=== PATIENT | male | born 1970 | race Caucasian/White ===

== ENCOUNTER 2020-06-01 07:42 | Day surgery (SDC) | payer BC ==
[~2020-06-01 07:42] MED LIST: LACTATED RINGERS 1,000 ML IV SCH
[2020-06-01 08:13] VITALS: TEMP 97.1
[2020-06-01] MEDS ORDERED: PROPOFOL 10 MG/ML 20 ML VIAL IV ONE (08:52)
[2020-06-01] MEDS ORDERED: LIDOCAINE 1% INJ 10MG/ML (20 ML MDV) ONE (08:52)
--- NOTE | 2020-06-01 09:48 | P.PCN ---
Date of Procedure: 06/01/20 Description of Procedure: BRIEF HISTORY: Patient is a 49-year-old male presenting for outpatient colonoscopy for evaluation of rectal hemorrhage. Patient was seen in the clinic reporting 5-7 was bowel movements daily with urgency of bowel movements. He reported passing bright red blood and mucus. He reports sensation of incomplete evacuation. No family history of IBD or colon cancer. PROCEDURE PERFORMED: Colonoscopy with biopsy and tattoo. PREOPERATIVE DIAGNOSIS: Rectal hemorrhage. ESTIMATED BLOOD LOSS: Minimal. IV sedation per Anesthesia. PROCEDURE: After informed consent was obtained, the patient, was brought into the endoscopy unit. IV sedation was administered by Anesthesia under continuous monitoring. Digital rectal examination was normal. Initially the Olympus CF-190 flexible video colonoscope was then inserted in the rectum, gradually advanced into the cecum without any difficulty. Careful examination was performed as the scope was gradually being withdrawn. Ileocecal valve and the appendiceal orifice were visualized and appeared normal. The terminal ileum was intubated and appeared normal with biopsies taken. Prep was fair with a large amount of liquid stool with some solid components found throughout the colon. Incomplete visualization of the mucosa. Mucosa of the cecum, ascending colon, transverse colon, descending colon, and sigmoid colon appeared normal, however complete visualization of the mucosa prohibited by fair prep. In the rectum to masses were noted. The first rectal mass was located 20 cm from the anal verge in the proximal rectum, with multiple biopsies taken of a pedunculated 3.7 cm mass. 2 mL of ink were injected next to the mass to tattoo the area. The second rectal mass was located in the distal rectum proximally 10 cm from the anal verge and was flat and ulcerated with heaped up edges measuring approximately 4.5 cm in size the mass was biopsied and 2 mL of ink were injected next to the mass to tattoo the area. Retroflexion was performed in the rectum and no lesions were seen. The patient tolerated the procedure well. IMPRESSION: Large pedunculated rectal mass in the proximal rectum biopsied and tattooed. Large ulcerated distal rectal mass with heaped up edges biopsied and tattooed. Otherwise normal-appearing colon from rectum to cecum with biopsies of the terminal ileum and right colon. Fair prep. RECOMMENDATIONS: Findings of this examination were discussed with the patient and his . Okay to resume diet. Okay to resume medications. Await pathology from biopsies. An appointment in the GI clinic will be made for next week for the results of the biopsies, however extensive discussion with the patient and his at this time the suspicion is for malignancy. Further recommendations will be made based on the findings of the pathology, however patient will likely need referral for surgical intervention.
[2020-06-01 10:11] VITALS: BP 145/89; PULSE 63; RESP 16
== END 2020-06-01 10:52 | disposition home or self-care (01) ==
LOC: ORWHC2ENDO 07:42
PROVIDERS: ATTEND Internal Medicine
DX: C20 Malignant neoplasm of rectum (principal); K63.5 Polyp of colon; I10 Essential (primary) hypertension; Z79.899 Other long term (current) drug therapy
CPT/HCPCS: 88305; 45380; 45381; J2001; J2704

== ENCOUNTER → 2020-06-25 | Outpatient (CLI) | payer BC ==
[2020-06-25 07:07] LABS: African American GFR (CKD) >90 (>60 ml/min/1.73 sqM); Blood Urea Nitrogen 15 mg/dL (9-20); Non-African American GFR(CKD) >90 (>60 ml/min/1.73 sqM)
--- NOTE | 2020-06-28 23:01 | CT ---
EXAMINATION TYPE: CT ChestAbdPelvis w con DATE OF EXAM: 06/25/2020 COMPARISON: None HISTORY: Rectal cancer CT DLP: 1232.60 mGycm Automated exposure control for dose reduction was used. CONTRAST: CT scan of the chest, abdomen and pelvis is performed with Oral Contrast and with IV Contrast, patien t injected with 100 ml mL of Isovue 300. FINDINGS: LUNGS: The lungs are grossly clear. There is a 3 mm nodule of the left lower lobe at the major fissur e near the hilum (4:23, 8:78, 7:61). No pulmonary mass. There is subsegmental atelectasis of the left upper lobe at the lung base. There is no pleural effusion or pneumothorax seen. The tracheobronchia l tree is patent. CHEST SOFT TISSUES/MEDIASTINUM: No axillary, hilar, or mediastinal lymphadenopathy. No thoracic aorti c aneurysm. Cardiac size is normal. No pericardial effusion is seen. LIVER: There are numerous hepatic metastatic hypodense lesions, the largest in the left lobe measurin g up to 1.1 x 0.7 cm (3:57), and the largest in the right lobe in segment 8 with 2 adjacent confluent masses measuring up to 3.9 x 2.0 cm (3:58). BILIARY SYSTEM: No intrahepatic or extrahepatic biliary ductal dilatation. Likely gallbladder fundal adenomyomatosis. PANCREAS: Normal. SPLEEN: Normal. ADRENALS: Normal. KIDNEYS: There is minimal nonspecific perinephric stranding, left greater than right. Otherwise jony l kidneys bilaterally. BOWEL: There is masslike thickening of the mid and upper rectum with multiple adjacent mesorectal an d presacral nodules, spanning an area of approximately 4.2 cm craniocaudal (8:59). The midline presac ral area of nodularity measures 2.3 x 1.6 cm (3:110). The more inferior right posterolateral confluen t nodularity spans an area of approximately 2.9 x 1.4 cm (3:115). No evidence of bowel obstruction. T here is colonic diverticulosis without acute diverticulitis. There is a large amount of colonic fecal debris to the level of the descending colon. Normal appendix. Small bowel is unremarkable. PERITONEUM: No pneumoperitoneum. No free fluid. Perirectal nodularity in the region of the rectal ma ss as described above. Multiple vessels coursing along the peritoneum of the abdomen are not to be co nfused with peritoneal thickening. LYMPH NODES: 7 mm left mesorectal lymph node near the lower/mid rectum (3:124). Left internal iliac 12 x 18 mm lymph node (3:111). There are 2 retroperitoneal lymph nodes at the level of the kidneys wh ich are more prominent than other retroperitoneal lymph nodes seen, measuring 7 x 11 mm and 7 x 10 mm (3:80). PELVIS: Normal urinary bladder. Prostatic calcifications. VASCULATURE: No abdominal aortic aneurysm. MUSCULOSKELETAL: No aggressive osseous destructive lesions. Degenerative changes of the spine and le ft shoulder. IMPRESSION: 1. Masslike thickening of the mid and upper rectum, consistent with history of rectal cancer. Multip le adjacent mesorectal and presacral nodules. 7 mm left mesorectal and 12 mm left internal iliac lymp h nodes are seen, most likely metastatic disease. There are 2 conspicuous retroperitoneal 7 mm lymph nodes which may represent metastatic disease, for which attention on follow-up imaging for stability is recommended. 2. Numerous hepatic metastases. 3. No metastatic rectal cancer within the chest. A 3 mm left perihilar lung nodule likely represents perifissural lymph node.
== END | disposition home or self-care (01) ==
LOC: RADCTMAIN 06:15
PROVIDERS: ATTEND Surgery
DX: C78.7 Secondary malignant neoplasm of liver and intrahepatic bile duct (principal); C20 Malignant neoplasm of rectum; R91.1 Solitary pulmonary nodule; M53.3 Sacrococcygeal disorders, not elsewhere classified
CPT/HCPCS: 82565; 84520; 71260; 74177; 36415; Q9967

== ENCOUNTER → 2020-06-28 | Outpatient (CLI) | payer BC ==
--- NOTE | 2020-06-29 01:17 | MR ---
EXAM: Rectal MRI without and with contrast CLINICAL HISTORY: Rectal cancer COMPARISON: CT chest abdomen pelvis 06/25/2020 TECHNIQUE: MRI examination of the pelvis utilizing rectal mass protocol was performed, without and wi th administration of 8.5 Gadavist intravenous contrast. FINDINGS: Primary tumor: Location: Low and mid rectum Craniocaudal length: 7.4 cm Distance from the anal verge: 8.3 cm Distance from the anorectal junction: 3.1 cm Morphology: Annular Circumferential location: Circumferential involvement MRI signal: Solid, nonmucinous Relationship to the anterior peritoneal reflection: Below Penetration beyond the muscularis propria: > 15 mm beyond muscularis propria, at the mid tumor 6-12 o 'clock (501:19), which extends to the right posterolateral mesorectal fascia. There are also areas of 5-15 mm of penetration beyond the muscularis propria at the mid tumor at 10-1:00 (501:22) and 7-9 o' clock (501:25), and at the inferior tumor from 12-5 o'clock (501:16). Shortest distance of tumor to the mesorectal fascia: There are tumoral deposits invading the mesorect al fascia of the inferior portion of the mid rectal tumor from 6-8 o'clock (501:21). There are tumora l deposits and extramural vascular invasion less than 1 mm from the posterior mesorectal fascia at 6: 00 at the superior aspect of the tumor at the level of S2-S3 (501:32, 201:19). Penetration through the anterior peritoneal reflection: No Tumor invasion of adjacent organs/structures: No Invasion of anal sphincter complex: Absent. Extramural vascular invasion (EMVI): Present. Mid rectal, at the superior aspect of the tumor in the presacral space spanning from S2 through S3 (201:19, 601:22). Tumoral deposits: Present at the mid and inferior aspects of the tumor from 6-11 o'clock (501:21) whi ch are invading the right posterolateral mesorectal fascia at 8:00 (501:21-23). Suspicious mesorectal/superior rectal lymph nodes: Left mesorectal 6 mm lymph node with round and het erogenous morphology at 2:00 (501:17). Suspicious extra-mesorectal lymph nodes: Present, locoregional 12 mm short axis left internal iliac l ymph node (404:476). Suspicious M1 lymph nodes: None. Distant metastatic status: Numerous hepatic metastases seen on CT 06/25/2020. Other: There is a 2.0 x 1.3 cm lesion of the right inferior sacrum which demonstrates restricted diff usion (404:492, 501:31). IMPRESSION: 1. T3d low and mid rectal tumor. Several tumoral deposits and extramural vascular invasion invade the posterior and right posterolateral mesorectal fascia. 2. 1 suspicious mesorectal lymph node and 1 suspicious locoregional left internal iliac lymph node. 3. 1.5 cm lesion of the right inferior sacrum with restricted diffusion likely represents metastatic osseous disease. This lesion is not discretely seen on 06/25/2020 CT comparison. 4. Hepatic metastases demonstrated on 06/25/2020 CT comparison.
== END | disposition home or self-care (01) ==
LOC: RADMRIMAIN 13:09
PROVIDERS: ATTEND Surgery
DX: C78.7 Secondary malignant neoplasm of liver and intrahepatic bile duct (principal); C20 Malignant neoplasm of rectum; C79.89 Secondary malignant neoplasm of other specified sites; M89.9 Disorder of bone, unspecified
CPT/HCPCS: 72197; A9585

== ENCOUNTER → 2020-07-06 | Outpatient (CLI) | payer BC ==
--- NOTE | 2020-07-06 14:53 | NM ---
EXAMINATION TYPE: NM bone scan whole body DATE OF EXAM: 07/06/2020 COMPARISON: CT chest abdomen and pelvis 11 days ago. MRI pelvis 8 days ago. HISTORY: Rectal cancer. Delayed whole-body scanning was performed following the injection of 23.6 mCi Tc 99m MDP. Images acq uired 3 hours post injection. Whole body images in the anterior posterior projection along with addit ional oblique projections of the thorax and lateral projections of the bilateral knees FINDINGS: Single suspicious osseous lesion right sacrum noted on the posterior projection correlates with pelvi c MRI. There is additional asymmetric radiotracer increased uptake medial aspect left humeral head, n onspecific finding. Favor asymmetric degenerative change as CT appears to show increased glenohumeral joint arthropathy at this level. The right shoulder. There is no suspicious increased radiotracer up take to suggest metastatic disease to the bone or other suspicious abnormality otherwise identified. Right greater than left mild increased radiotracer uptake favors degenerative change, correlate clini vishal. IMPRESSION: As above. Right sacral suspicious lesion redemonstrated. No definitive additional osseous metastatic lesions.
== END | disposition home or self-care (01) ==
LOC: RADNMMAIN 10:13
PROVIDERS: ATTEND Internal Medicine Hematology & Oncology
DX: M12.811 Other specific arthropathies, not elsewhere classified, right shoulder (principal); C20 Malignant neoplasm of rectum
CPT/HCPCS: 78306; A9503

== ENCOUNTER 2020-07-09 09:53 | Day surgery (SDC) | payer BC ==
[2020-07-05 14:44] VITALS: BMI 26.3
[~2020-07-09 09:53] MED LIST changes: +ACETAMINOPHEN TAB 500 MG TAB ONE; +ACETAMINOPHEN TAB 500 MG TAB PO ONE; +DEXAMETHASONE SOD PHOSPHATE 10 MG/ML 1 ML VIAL IV ONE; +HEPARIN SODIUM,PORCINE 5,000 UNIT/ML 1 ML VIAL ONE; +HEPARIN SODIUM,PORCINE 5,000 UNIT/ML 1 ML VIAL SQ ONE; +HYDROmorphone 0.5 MG/0.5 ML SYRINGE IVP PRN; +LIDOCAINE 1% (10MG/ML) FOR IV START INTRADERMA PRN; +MIDAZOLAM 2 MG/2 ML VIAL IV PRN; +ONDANSETRON 4 MG/2 ML VIAL IVP ONE; +ONDANSETRON 4 MG/2 ML VIAL ONE; +Pre Op ABX Message 1 EACH MISC MISCELLANE ONE
[2020-07-09 10:07] VITALS: TEMP 97.3
--- NOTE | 2020-07-09 10:32 | P.GSHP ---
History of Present Illness H&P Date: 07/09/20 Chief Complaint: Rectal cancer 50-year-old male recently diagnosed with rectal cancer. Patient has suspected metastasis to the liver and also to the sacral bone. Here today for Port-A-Cath placement. Patient to begin chemotherapy in the near future. Liver biopsy apparently has been ordered as well. Past Medical History Past Medical History: Cancer, Hypertension Additional Past Medical History / Comment(s): rectal cancer diagnosed May 2020 and new liver mass to be biopsied 07/20/20 History of Any Multi-Drug Resistant Organisms: None Reported Past Surgical History: No Surgical Hx Reported Additional Past Surgical History / Comment(s): will have mediport placed Monday 07/09, colonoscopy Past Anesthesia/Blood Transfusion Reactions: No Reported Reaction Additional Past Anesthesia/Blood Transfusion Reaction / Comment(s): HAS NEVER HAD GENERAL ANESTHESIA or blood transfusion Past Psychological History: No Psychological Hx Reported Smoking Status: Never smoker Past Alcohol Use History: Occasional Past Drug Use History: None Reported - Past Family History Mother Family Medical History: Cancer Medications and Allergies Home Medications Medication Instructions Recorded Confirmed Type Lisinopril-Hctz 20-12.5 mg 1 tab PO DAILY 07/05/20 07/09/20 History [Zestoretic 20-12.5] Allergies Allergy/AdvReac Type Severity Reaction Status Date / Time No Known Allergies Allergy Verified 07/05/20 14:35 Surgical - Exam Vital Signs Temp Pulse Resp BP Pulse Ox 97.3 F L 87 16 138/87 94 L 07/09/20 10:04 07/09/20 10:04 07/09/20 10:04 07/09/20 10:04 07/09/20 10:04 Physical exam: General: Well-developed, well-nourished HEENT: Normocephalic, sclerae nonicteric Abdomen: Nontender, nondistended Extremities: No edema Neuro: Alert and oriented Assessment and Plan (1) Rectal cancer Narrative/Plan: Will proceed with Port-A-Cath placement at this time. Risks of bleeding, infection, DVT, pneumothorax, catheter malfunction, anesthesia related complications were discussed. The patient understands and wishes to proceed. Current Visit: Yes Status: Acute Code(s): C20 - MALIGNANT NEOPLASM OF RECTUM SNOMED Code(s): 013257213
[2020-07-09] MEDS ORDERED: MIDAZOLAM 2 MG/2 ML VIAL ONE (11:31)
[2020-07-09] MEDS ORDERED: PROPOFOL 10 MG/ML 20 ML VIAL IV ONE (11:31)
[2020-07-09] MEDS ORDERED: LIDOCAINE 1% INJ 10MG/ML (20 ML MDV) ONE (11:31)
[2020-07-09] MEDS ORDERED: fentaNYL (PF) 50 MCG/ML 2 ML AMP ONE (11:31)
[2020-07-09] MEDS ORDERED: SODIUM CHLORIDE 0.9% 100 ML with ceFAZolin 2,000 MG IV ONE ×2 (11:50)
[2020-07-09] MEDS ORDERED: LIDOCAINE 1% INJ 10MG/ML (20 ML MDV) SQ ONE ×2 (11:54)
[2020-07-09] MEDS ORDERED: HEPARIN SODIUM,PORCINE 100 UNIT/ML 5 ML VIAL IV ONE ×2 (11:57)
[2020-07-09] MEDS ORDERED: HYDROcodone/APAP 5-325MG 1 EACH TAB PO PRN (12:24)
[2020-07-09] MEDS ORDERED: NALOXONE 0.4 MG/ML 1 ML VIAL IV PRN (12:24)
--- NOTE | 2020-07-09 12:33 | P.OP ---
Date of Procedure: 07/09/20 Procedure(s) Performed: PREOPERATIVE DIAGNOSIS: Rectal cancer POSTOPERATIVE DIAGNOSIS: Same PROCEDURE: Port-A-Cath placement with fluoroscopic and ultrasound guidance SURGEON: Zara EBL: Minimal ANESTHESIA: Sedation COMPLICATIONS: None OPERATIVE PROCEDURE: Patient was brought and placed on the operative table in the supine position. The patient was sedated per anesthesia that time. The chest and neck were prepped and draped in usual sterile fashion. The ultrasound probe was used to identify the location of the right internal jugular vein. The skin was localized with lidocaine. The Seldinger needle was advanced into the IJ under ultrasound guidance. The wire was advanced through the needle under fluoroscopic guidance into the superior vena cava. A port pocket was created in the right infraclavicular location. The catheter was tunneled from the wire entrance site to the port pocket. The port was then connected to the catheter. The dilator introducer was threaded over the guidewire. The guidewire and dilator were then removed. The catheter was advanced through the introducer and introducer was then removed. The tip was seen to be in the right atrial junction via fluoroscopy. A picture of the radiograph showing the tip at the radial digital junction was taken. Port was flushed with both saline and a Hep- Lock solution. There was good flow both in and out of the port. The port was sutured in underlying tissues using 3-0 silk sutures. The subcutaneous tissues were reapproximated using 3-0 Vicryl sutures and the skin at both locations using 4-0 Monocryl sutures. Skin glue and sterile dressings then applied. DISPOSITION: Stable to recovery room
--- NOTE | 2020-07-09 12:36 | FL ---
Fluoroscopy INDICATION: Pain FINDINGS: Fluoroscopy time: 6 seconds. Images obtained: 1. IMPRESSIONS: 1. Documentation of fluoroscopy.
[2020-07-09] MEDS ORDERED: HYDROmorphone (PF) 1 MG/ML ONE (12:49)
--- NOTE | 2020-07-09 13:13 | XR ---
EXAMINATION TYPE: XR chest 1V DATE OF EXAM: 07/09/2020 CLINICAL HISTORY: Post Port-A-Cath placement TECHNIQUE: Portable upright view of the chest obtained COMPARISON: None FINDINGS: There is a right-sided internal jugular Port-A-Cath with distal tip over the cavoatrial ju nction. No pneumothorax. The cardiomediastinal silhouette is within normal limits for size. Pulmonary vasculature is normal. There is no focal air space opacity or pneumothorax. Degenerative change of t he left shoulder. IMPRESSION: Right-sided internal jugular Port-A-Cath distal tip over the cavoatrial junction. No pneu mothorax.
[2020-07-09 13:48] VITALS: BP 123/86; PULSE 83; RESP 20
== END 2020-07-09 13:44 | disposition home or self-care (01) ==
LOC: OR 09:53
PROVIDERS: ATTEND Surgery
DX: C20 Malignant neoplasm of rectum (principal); R16.0 Hepatomegaly, not elsewhere classified; I10 Essential (primary) hypertension; Z98.890 Other specified postprocedural states; Z86.010 Personal history of colon polyps; Z79.899 Other long term (current) drug therapy; Z80.9 Family history of malignant neoplasm, unspecified
CPT/HCPCS: 77001; 71045; 36561; C1788; J2250; J1644; J1642; J1100; J2405; J0690; J2001; J3010; J1170; J2704

== ENCOUNTER 2020-07-20 08:51 | Day surgery (SDC) | payer BC ==
[2020-07-20 09:43] LABS: Mean Platelet Volume 6.6; Platelet Count 268 k/uL (150-450)
[2020-07-20 09:50] VITALS: RESP 16; TEMP 97.7
[2020-07-20] MEDS ORDERED: ALPRAZolam 0.5 MG TAB PO STA (09:50)
[2020-07-20 10:04] LABS: Prothrombin Time 10.3 sec (9.0-12.0)
--- NOTE | 2020-07-20 11:02 | P.OP ---
Date of Procedure: 07/20/20 Preoperative Diagnosis: liver masses, history colorectal cancer Procedure(s) Performed: ultrasound guided liver mass biopsy Anesthesia: local Surgeon: Lila Win Estimated Blood Loss (ml): 0 Pathology: other (2 18G cores sent for histopathology) Condition: stable Disposition: same day Operative Findings: Multiple liver masses. Right lobe lesion targeted for 18G core biopsy. No immediate complications. Patient tolerated well.
[2020-07-20 16:27] VITALS: BP 124/77; PULSE 70
--- NOTE | 2020-07-20 18:03 | US ---
EXAMINATION TYPE: US biopsy liver DATE OF EXAM: 07/20/2020 HISTORY: Rectal cancer COMPARISON: CT chest abdomen pelvis 06/25/2020. Rectal MRI 06/28/2020. EXTRACTOR FILLER: Dr. Lila Win PROCEDURE: Preliminary preprocedure ultrasound imaging demonstrates multiple well-circumscribed iso to hypoechoi c liver masses of the bilateral lobes. The procedure was discussed with the patient. The risks, complications, benefits, and alternatives we re discussed and any questions were answered. Informed consent was obtained. Patient was positioned left posterior oblique. Maximal barrier technique was utilized. The skin overl daniel a suitable path to the liver was localized using ultrasound, the skin was prepped and draped. Ul trasound was utilized with sterile technique. Lidocaine was used for local anesthesia. A skin shameka ma de with a scalpel. Under direct ultrasound guidance, a 17-gauge introducer needle was advanced into the right liver, the stylet was removed, and 18-gauge core biopsy needle was advanced into the liver and core biopsy obtained. 2 core biopsy specimens were obtained, and submitted in formalin for histo pathology. Hemostasis was achieved. There was no immediate complication and patient remained in stabl e condition. Post procedure ultrasound imaging demonstrates no significant hemorrhage. IMPRESSION: Status post ultrasound-guided 18-gauge core biopsy of right liver mass. Pathology pending.
== END 2020-07-20 13:55 | disposition home or self-care (01) ==
LOC: RADPROMAIN 08:51
PROVIDERS: ATTEND Internal Medicine Hematology & Oncology
DX: C78.7 Secondary malignant neoplasm of liver and intrahepatic bile duct (principal); C20 Malignant neoplasm of rectum
CPT/HCPCS: 36415; 47000; 76942; 85049; 85610; 88307; 88341; 88342

== ENCOUNTER → 2020-09-14 | Outpatient (CLI) | payer BC ==
--- NOTE | 2020-09-14 18:57 | CT ---
EXAMINATION TYPE: CT ChestAbdPelvis w con DATE OF EXAM: 09/14/2020 COMPARISON: CT chest abdomen pelvis 06/25/2020. MRI pelvis 06/28/2020. HISTORY: Rectal CA CT DLP: 1396.0 mGycm Automated exposure control for dose reduction was used. CONTRAST: CT scan of the chest, abdomen and pelvis is performed with Oral Contrast and with IV Contrast, patien t injected with 100 mL of Isovue 300. FINDINGS: LUNGS: Lungs are grossly clear. No concerning parenchymal mass or nodule identified. No pleural effus ion. No pneumothorax. The tracheobronchial tree is patent. MEDIASTINUM/SOFT TISSUES: Right-sided MediPort distal tip in the distal superior vena cava. No axilla ry, hilar, or mediastinal lymphadenopathy greater than 1 cm. Cardiac size is normal. No pericardial e ffusion. No thoracic aortic aneurysm. LIVER: Interval decrease in size of subtle hypodense hepatic metastases. For example largest within t he right inferior lobe segment 6 measuring 1.4 x 1.5 cm (7:28), previously measuring 2.1 x 1.6 cm on 06/24/2020 CT comparison. Lesion within segment 4A measures 1.1 cm (7:16), previously 1.9 cm. Lesion w ithin segment 3 measures 0.8 cm (7:18), previously 1.2 cm. No new hepatic lesions. BILIARY SYSTEM: Normal. Gallbladder contracted. PANCREAS: Normal. SPLEEN: Normal. ADRENALS: Normal. KIDNEYS: Normal. BOWEL: There is interval decreased masslike thickening of the mid and upper rectum, asymmetric on th e right (3:110-114). The extramural mesorectal and presacral metastatic extension and nodularity is r edemonstrated and decreased in size and thickness. The midline presacral nodularity measures 1.1 x 1. 2 cm (3:106), previously 2.3 x 1.6 cm on 06/25/2020 comparison. There is redemonstrated PERITONEUM: No pneumoperitoneum. No free fluid. Decreased perirectal nodularity versus 06/25/2020. LYMPH NODES: No lymphadenopathy. The left mesorectal lymph node previously measuring 7 mm demonstrat es interval decrease in size measuring 3 mm on current exam (3:120). The left internal iliac lymph no de measures 0.8 x 1.3 cm (3:110), previously measuring 1.2 x 1.8 cm on 06/25/2020. The prominent retro peritoneal lymph nodes at the level of the kidneys measure up to 5 mm (3:79), previously measuring up to 7 mm. PELVIS: Normal. VASCULATURE: No abdominal aortic aneurysm. MUSCULOSKELETAL: No aggressive osseous destructive lesions.. The previously demonstrated right sacra l osseous metastatic lesion on 06/28/2020 MRI and 07/06/2020 bone scan did not demonstrate correlate on 06/25/2020 CT. IMPRESSION: 1. Decreased masslike thickening of the mid and upper rectum versus 06/25/2020 CT. Decreased persisten t mesorectal and presacral metastatic extension and nodularity. 2. Decreased size of left mesorectal, left internal iliac, and retroperitoneal lymph nodes versus 06/12. 3. Decreased size of hepatic metastases. 4. The right sacral osseous metastatic lesion demonstrated on 06/28/2020 MRI and 07/06/2020 bone scan d emonstrated no CT correlate on 06/25/2020 CT, and none on current CT exam. Recommend repeat bone scan or MRI for evaluation of this lesion. 5. No metastatic rectal cancer of the chest.
== END | disposition home or self-care (01) ==
LOC: RADCTMAIN 07:42
PROVIDERS: ATTEND Internal Medicine Hematology & Oncology
DX: Z03.89 Encounter for observation for other suspected diseases and conditions ruled out (principal); C20 Malignant neoplasm of rectum; C79.51 Secondary malignant neoplasm of bone; C78.7 Secondary malignant neoplasm of liver and intrahepatic bile duct
CPT/HCPCS: 82565; 84520; 71260; 74177; 36415; Q9967 ×2

== ENCOUNTER → 2020-12-28 | Outpatient (CLI) | payer BC ==
--- NOTE | 2020-12-28 10:06 | CT ---
EXAMINATION TYPE: CT ChestAbdPelvis w con DATE OF EXAM: 12/28/2020 COMPARISON: 09/14/2020 and 06/25/2020 HISTORY: 50-year-old male C2 0 Rectal CA, Z03.89, observation for metastases TECHNIQUE: Contiguous axial scanning of the chest, abdomen, and pelvis performed with IV Contrast, pa tient injected with 100 mL of Isovue 300. Delayed images through the kidneys were obtained. Coronal/s agittal reconstructions performed. CT DLP: 1363.2 mGycm Automated exposure control for dose reduction was used. FINDINGS: CHEST: Right anterior distal injection port with catheter tip at the lower SVC. Heart normal size with trace anterior pericardial fluid. Ectatic upper descending thoracic aorta 3.2 cm. Conventional arch vessel branching anatomy. Calcified AP window lymph nodes compatible with prior granulomatous disease. No thoracic lymphadenopa thy by CT size criteria. Some patchy atelectasis or scarring at the inferior lingula. Otherwise, no consolidation or pleural e ffusion. ABDOMEN: 2 hypodense hepatic lesions are demonstrated in the left liver lobe measuring 9 mm axial image 50 and 6 mm axial image 53. Both of these are unchanged from 09/14/2020. An additional hypodense lesion in t he right liver lobe measures 1.3 cm on axial image 63, smaller as compared to 1.6 cm on 09/14/2020. No new liver lesions identified. Portal venous system is patent. No biliary ductal dilatation. Gallbladder shows a phrygian cap. Adrenal glands, kidneys, spleen, pancreas appear within normal limits. No dilated small bowel, free fluid, or free air. Stable scattered nonenlarged mesenteric lymph nodes. No enlarging retroperitoneal lymphadenopathy. Oral contrast has progressed into the ascending colon. There is moderate stool burden. No pericolonic inflammatory change. The wall thickening of the rectum as seen on 06/25/2020 again noted to have reso lved. Minimal perirectal nodularity inferiorly on the left, axial image 122 and towards the right at the mid rectal level axial image 114 appears similar to prior exam. The previous left internal iliac chain lymph node also remains small at 1.0 cm versus 1.3 cm, previou sly. PELVIS: Mild circumference of bladder wall thickening. Pelvic phleboliths. Prostate gland measures 4.8 cm wid e. No abnormal fluid collection in the pelvis. Perirectal and left internal iliac chain nodularity as above. IMPRESSION: 1. 3 HYPODENSE HEPATIC LESIONS MEASURING UP TO 1.3 CM ARE EITHER STABLE OR SMALLER COMPARED TO 09/14/2020. 2. MINIMAL PERIRECTAL NODULARITY REMAINS UNCHANGED FROM 09/14/2020 AND IMPROVED FROM 06/25/2020. THE NV EVIOUS LEFT INTERNAL ILIAC CHAIN LYMPH NODE APPEARS SMALLER AT 1.0 CM VERSUS 1.3 CM, PREVIOUSLY. 3. NO FINDINGS TO SUGGEST DISEASE PROGRESSION.
== END | disposition home or self-care (01) ==
LOC: RADCTMAIN 05:52
PROVIDERS: ATTEND Internal Medicine Hematology & Oncology
DX: Z03.89 Encounter for observation for other suspected diseases and conditions ruled out (principal); C20 Malignant neoplasm of rectum; K76.9 Liver disease, unspecified; Z95.828 Presence of other vascular implants and grafts
CPT/HCPCS: 82565; 84520; 71260; 74177; 36415; Q9967 ×2

== ENCOUNTER → 2021-03-21 | Outpatient (CLI) | payer BC ==
--- NOTE | 2021-03-21 14:08 | CT ---
EXAMINATION TYPE: CT ChestAbdPelvis w con DATE OF EXAM: 03/21/2021 COMPARISON: 12/28/2020 HISTORY: Rectal CA CT DLP: 2086 mGycm CONTRAST: CT scan of the chest, abdomen and pelvis is performed with Oral Contrast and with IV Contrast, patien t injected with 100 mL of Isovue 300. CT Chest: LUNGS: The lungs are clear and free of infiltrate or atelectasis. No pulmonary nodule or mass is det ected. No pleural effusion or CT evidence of interstitial lung disease. MEDIASTINUM: Thoracic aorta is of normal caliber. The heart is not enlarged. No evidence for media stinal mass or adenopathy. HILAR STRUCTURES: No evidence for mass. No hilar adenopathy is appreciated. OTHER: No significant abnormality. CONTRAST CT ABDOMEN AND PELVIS FINDINGS: LIVER/GB: Hyperdense lesion anterior segment right hepatic lobe image 63 currently measures 11.8 mm v ersus 12.5 mm previously. Additional 6 mm lesion lateral segment left hepatic lobe versus 8.6 mm prev iously. 3 mm lesion seen previously anterior left hepatic lobe is not redemonstrated at this time. No new lesions are identified. The gallbladder is unremarkable. PANCREAS: No inflammation. No distinct mass. SPLEEN: No splenic enlargement. No lesion seen. ADRENALS: No nodule. No thickening. KIDNEYS/BLADDER: No hydronephrosis. No nephrolithiasis. No distinct renal mass. BOWEL: Normal appendix. Perirectal nodularity described previously is not reproduced at this time. No rmal bowel caliber. No inflammation. GENITAL ORGANS: No gross abnormality. LYMPH NODES: No greater than 1cm abdominal or pelvic lymph nodes are appreciated. AORTA: No significant abnormality. OSSEOUS STRUCTURES: No significant abnormality is seen. OTHER: No significant additional abnormality is seen. IMPRESSION: 1. No evidence for disease progression or recurrent disease. 2.Perirectal nodularity described previously is not reproduced at this time. 3. Hepatic lesions are smaller in size versus not reproduced as noted above. No new lesions identifie d at this time.
== END | disposition home or self-care (01) ==
LOC: RADCTMAIN 11:48
PROVIDERS: ATTEND Internal Medicine Hematology & Oncology
DX: K76.9 Liver disease, unspecified (principal)
CPT/HCPCS: 82565; 84520; 71260; 74177; 36415; Q9967

== ENCOUNTER → 2021-06-16 | Outpatient (CLI) | payer BC ==
[2021-06-16 11:53] LABS: African American GFR (CKD) >90 (>60 ml/min/1.73 sqM); Blood Urea Nitrogen 22 mg/dL (9-20); Non-African American GFR(CKD) 82 (>60 ml/min/1.73 sqM)
--- NOTE | 2021-06-17 13:07 | CT ---
EXAMINATION TYPE: CT ChestAbdPelvis w con DATE OF EXAM: 06/16/2021 INDICATION: Follow up for rectal cancer. COMPARISON: 03/21/2021 CT DLP: 1431.5 mGycm CONTRAST: Performed with Oral Contrast and with IV Contrast, patient injected with 100ml mL of Isovue 300. TECHNIQUE: Axial images at 5 mm thick sections. Reconstructed images in the coronal plane. Delayed images through the kidneys. FINDINGS: CT CHEST: Portion of the thyroid visualized is normal. No suspicious lung nodules or focal infiltrates are present. No enlarged mediastinal or hilar adenopathy is evident. The ascending aorta diameter at the level of the main pulmonary artery is 3.7 cm. The main pulmonary artery diameter at the bifurcation is 3.[address] ABDOMEN: Liver: Normal. Previous hypodense lesions are not identified. Spleen: Normal Pancreas: Normal Adrenal glands: The adrenal glands are normal. Gallbladder: Normal Kidneys: No masses are evident. No hydronephrosis is present. No cysts are present. Delayed images were obtained through the kidneys, which remain unremarkable. Aorta: Vascular calcification is within the aorta. Inferior vena cava: Normal. CT PELVIS: Loops of bowel within the abdomen and pelvis are normal. Few diverticuli within sigmoid colon. The re are loops of bowel which are incompletely distended or lack oral contrast limiting their evaluatio n. No suspicious rectal abnormality is evident. No perirectal lymphadenopathy is identified Appendix: Normal as visualized. Urinary bladder: Normal. Genitourinary structures: Prostate is prominent. A few scattered punctate calcifications are present. Osseous structures: No suspicious lytic or sclerotic lesions. Degenerative disc changes are present IMPRESSIONS: 1. No suspicious changes to suggest recurrent or metastatic colon cancer.
== END | disposition home or self-care (01) ==
LOC: RADCTMAIN 10:49
PROVIDERS: ATTEND Internal Medicine Hematology & Oncology
DX: C20 Malignant neoplasm of rectum (principal)
CPT/HCPCS: 82565; 84520; 71260; 74177; 36415; Q9967

== ENCOUNTER → 2021-09-12 | Outpatient (CLI) | payer BC ==
[2021-09-12 11:41] LABS: African American GFR (CKD) >90 (>60 ml/min/1.73 sqM); Blood Urea Nitrogen 19 mg/dL (9-20); Non-African American GFR(CKD) >90 (>60 ml/min/1.73 sqM)
--- NOTE | 2021-09-12 16:13 | CT ---
EXAMINATION TYPE: CT ChestAbdPelvis w con DATE OF EXAM: 09/12/2021 COMPARISON: 06/16/2021, 03/21/2021 HISTORY: 51-year-old male C20, Rectal cancer. TECHNIQUE: Contiguous axial scanning of the chest, abdomen, and pelvis performed with IV Contrast, pa tient injected with 100 mL of Isovue M300. There was technical difficulty with contrast extravasation . This resulted in a single delayed scan. Coronal/sagittal reconstructions performed. CT DLP: 1641 mGycm Automated exposure control for dose reduction was used. FINDINGS: CHEST: Heart normal size with trace anterior pericardial fluid, unchanged from prior. There is conventional arch vessel branching anatomy. Borderline ectasia upper descending thoracic aor ta 3.1 cm is unchanged. Calcified AP window and left hilar lymph nodes are unchanged. No thoracic lymphadenopathy by CT size criteria. No consolidation or pleural effusion. ABDOMEN: Stable punctate hypodensities left hepatic dome and anterior left liver margin, axial image 50 and 52 measuring up to 5 mm. Hypodense lesion inferior right liver lobe now measures 1.8 cm and was only subtly apparent on 06/16/20 21 estimated at approximately 1.4 cm. Portal venous system is patent. No biliary ductal dilatation. Phrygian cap of the gallbladder. No abnormal gallbladder distention. Adrenal glands, excreting kidneys, spleen, and pancreas within normal limits. No dilated small bowel, free fluid, or free air. A few scattered prominent but nonenlarged mesenteric lymph nodes appear unchanged. Normal appendix. Moderate stool burden. Sigmoid diverticulosis. No pericolonic inflammatory change. PELVIS: Admixture of contrast and urine in the bladder. Prostate gland measures 4.5 cm wide. There is some increasing 9 mm right posterior perirectal nodularity, axial image 113. Additional incr easing posterior perirectal nodularity at the level of the upper rectum measuring 1.5 x 0.8 cm versus 1.1 x 0.4 cm cyst, previously. Small to moderate right-sided hydrocele. No other abnormal fluid collection in the pelvis. BONES: No osseous destructive process. Anterior endplate spondylosis mid to lower thoracic spine. IMPRESSION: 1. CLOSE FOLLOW UP RECOMMENDED FINDINGS MAY REPRESENT SUBTLE PROGRESSION. THE INFERIOR RIGHT LIVER LOBE LESION IS SLIGHTLY LARGER AT 1.8 CM. IT WAS ONLY SUBTLY APPARENT IN RETROSPECT, ESTIMATED AT AP PROXIMATELY 1.4 CM, PREVIOUSLY. ALSO, THERE IS INCREASING PERIRECTAL NODULARITY NOW MEASURING 1.5 CM AND 9 MM. 2. SIGMOID DIVERTICULOSIS WITHOUT ACUTE DIVERTICULITIS. [id number] RIGHT-SIDED SCROTAL HYDROCE LE.
== END | disposition home or self-care (01) ==
LOC: RADCTMAIN 10:44
PROVIDERS: ATTEND Internal Medicine Hematology & Oncology
DX: C20 Malignant neoplasm of rectum (principal); R91.8 Other nonspecific abnormal finding of lung field; K57.30 Diverticulosis of large intestine without perforation or abscess without bleeding; N43.3 Hydrocele, unspecified
CPT/HCPCS: 82565; 84520; 71260; 74177; 36415; Q9967 ×2

== ENCOUNTER → 2021-10-24 | Outpatient (CLI) | payer BC ==
[2021-10-24 14:27] LABS: African American GFR (CKD) >90 (>60 ml/min/1.73 sqM); Blood Urea Nitrogen 16 mg/dL (9-20); Non-African American GFR(CKD) >90 (>60 ml/min/1.73 sqM)
--- NOTE | 2021-10-24 20:35 | CT ---
EXAMINATION TYPE: CT ChestAbdPelvis w con DATE OF EXAM: 10/24/2021 COMPARISON: 09/12/2021, 06/16/2021, 03/21/2021 HISTORY: 51-year-old male C20, Follow up for rectal cancer. TECHNIQUE: Contiguous axial scanning of the chest, abdomen, and pelvis performed with IV Contrast, pa tient injected with 100ml mL of Isovue 300. Delayed images through the kidneys were obtained. Coronal /sagittal reconstructions performed. CT DLP: 1444.2 mGycm Automated exposure control for dose reduction was used. FINDINGS: CHEST: Right anterior chest wall injection port with catheter tip at the mid SVC. Heart normal size with small anterior pericardial fluid measuring 8 mm. Mild aneurysm ascending aorta 4.0 cm. Ectatic upper descending thoracic aorta 3.2 cm. Conventional ar ch vessel branching anatomy. Calcified left hilar and AP window lymph nodes compatible prior granulomatous disease. No thoracic ly mphadenopathy by CT size criteria. Some strandy atelectasis within the inferior lingula. Otherwise, no consolidation or pleural effusion . ABDOMEN: Subtle hypodense lesion inferior right liver lobe measures 1.9 cm versus 1.8 cm, previously. A 1.0 cm right hepatic dome lesion appears unchanged in retrospect (delayed axial image 14). Not clearly seen on 06/16/2021. Portal venous system is patent. No biliary ductal dilatation. Gallbladder, adrenal glands, kidneys, spleen, and pancreas within normal limits. No dilated small bowel, free fluid, or free air. No mesenteric or retroperitoneal lymphadenopathy. Mild stool burden. Normal appendix. Sigmoid diverticulosis. No pericolonic inflammatory change. PELVIS: Mild circumferential bladder wall thickening. Prostate gland measures 4.4 cm wide. Right posterior perirectal nodularity measures 1.2 cm, axial image 111 versus 9 mm, previously. Posterior perirectal nodularity higher up measures 1.6 x 0.9 cm, axial image 105, versus 1.5 x 0.8 cm , previously. These areas of nodularity are not clearly seen on the 03/21/2021 exam. No abnormal fluid collection th e pelvis. Small bilateral hydroceles are noted. BONES: Mild degenerative change at the hips. No osseous destructive process. IMPRESSION: 1. THE PREVIOUS 2 AREAS OF PERIRECTAL NODULARITY PERSIST AND SHOW SLIGHT INCREASING FULLNESS NOW RAJNI URING 1.6 CM AND 1.2 CM (VERSUS 1.5 CM AND 0.9 CM, PREVIOUSLY, RESPECTIVELY). 2. THE INFERIOR RIGHT LIVER LOBE LESION MEASURES 1.9 CM VERSUS 1.8 CM ON THE RECENT PRIOR. A 1 CM LES ION IN THE RIGHT HEPATIC DOME IS UNCHANGED IN RETROSPECT COMPARED TO 09/12/2021 BUT IS NOT CLEARLY SEE N ON 06/16/2021. 3. IF A DECISION IS BEING MADE TO DETERMINE BETWEEN INITIATION OF THERAPY VERSUS CONTINUED FOLLOW-UP, CONSIDER PET/CT.
== END | disposition home or self-care (01) ==
LOC: RADCTMAIN 13:28
PROVIDERS: ATTEND Internal Medicine Hematology & Oncology
DX: C20 Malignant neoplasm of rectum (principal); K76.9 Liver disease, unspecified
CPT/HCPCS: 82565; 84520; 71260; 74177; 36415; Q9967

== ENCOUNTER → 2021-11-25 | Outpatient (CLI) | payer BC ==
--- NOTE | 2021-11-28 07:44 | PE ---
EXAMINATION TYPE: PET CT fusion skull to thigh DATE OF EXAM: 11/25/2021 COMPARISON: Whole-body CT October 24, [address] studies HISTORY: Rectal lower Anal cancer diagnosed June 03, 2020 completed chemotherapy today. TECHNIQUE: Following the intravenous administration of 11.86 mCi of F-18 FDG, whole body images are performed from the skull base to the midthigh. Images are reviewed on the computer in the coronal, a xial, and sagittal planes. Reconstructed rotating images are created on independent workstation and reviewed on the computer. A localization and attenuation correction CT is performed in conjunction with the PET scan. Blood glucose level equals 103. SCAN: Initial Scan FINDINGS: SKULL BASE AND NECK: No areas of abnormal hypermetabolic uptake. CHEST, MEDIASTINUM, AND HILAR REGION: No areas of abnormal hypermetabolic uptake. ABDOMEN AND PELVIS: Persistent roughly 2.6 cm hypermetabolic lesion posterior right hepatic lobe axia l image 134, max SUV is 5.56. There is 2.1 x 1.2 cm area of abnormal hypermetabolic uptake in the sigmoid rectal colon axial image 225 where there is eccentric thickening, max SUV is 5.35. Abnormal adjacent right pelvic 1.2 x 1.0 cm lymph node axial image 226, max SUV is 5.02. Abnormal hyp ermetabolic 1.4 x 0.8 cm left lateral pelvic lymph node axial image 230, max SUV is 3.3. Abnormal sub centimeter tiny focus along the posterior left rectum axial image 236, max SUV is 2.85. Normal excretion is seen. No additional areas of abnormal hypermetabolic uptake. OSSEOUS STRUCTURES: No areas of abnormal hypermetabolic uptake. OTHER CT: Stable right internal jugular Mediport catheter. Calcified left suprahilar lymph nodes cons istent with products of old granulomatous disease. Colonic diverticulosis. IMPRESSION: Persistent rectal neoplasm and adjacent pelvic adenopathy. Persistent hypermetabolic hepa tic metastatic lesion.
== END | disposition home or self-care (01) ==
LOC: RADPETMAIN 09:23
PROVIDERS: ATTEND Internal Medicine Hematology & Oncology
DX: C20 Malignant neoplasm of rectum (principal); C78.7 Secondary malignant neoplasm of liver and intrahepatic bile duct; R59.0 Localized enlarged lymph nodes
CPT/HCPCS: 78815; A9552

== ENCOUNTER → 2022-04-14 | Outpatient (CLI) | payer BC ==
--- NOTE | 2022-04-15 07:10 | PE ---
EXAMINATION TYPE: PET CT fusion skull to thigh DATE OF EXAM: 04/14/2022 COMPARISON: Most recent PET CT November 25, 2021 HISTORY: Rectal lower Anal cancer diagnosed June 03, 2020 completed chemotherapy April 06 TECHNIQUE: Following the intravenous administration of 10.14 mCi of F-18 FDG, whole body images are performed from the skull base to the midthigh. Images are reviewed on the computer in the coronal, a xial, and sagittal planes. Reconstructed rotating images are created on independent workstation and reviewed on the computer. A localization and attenuation correction CT is performed in conjunction with the PET scan. Blood glucose level was 109 SCAN: Subsequent Scan FINDINGS: SKULL BASE AND NECK: Hypermetabolic subcentimeter right thyroid focus, max SUV is 3.75 on axial imag e 63. No additional areas of abnormal hypermetabolic uptake. CHEST, MEDIASTINUM, AND HILAR REGION: No areas of abnormal hypermetabolic uptake. ABDOMEN AND PELVIS: Persistent roughly 3.2 cm Cm hypermetabolic lesion posterior right hepatic lobe a xial image 134, max SUV is 5.66 current study versus 5.56 on prior. Prior visualized 2.1 x 1.2 cm area of abnormal hypermetabolic uptake in the sigmoid rectal colon axia l image 226 where there is eccentric thickening shows positive treatment response currently ametaboli c. Abnormal adjacent right pelvic 1.2 x 1.0 cm lymph node axial image 227, max SUV is 7.79 current study versus 5.02. Abnormal hypermetabolic 1.4 x 0.8 cm left lateral pelvic lymph node axial image 230 now is not clearly seen. There is new subcentimeter hypermetabolic pelvic lymph node max SUV 9.49 axial image 218. There is suspicious subcentimeter mildly hypermetabolic left pelvic lymph node axial image 210 superior to this max SUV of 3.41. Abnormal subcentimeter tiny focus along the posterior left rectum axial image 234, max SUV is 3.05 on the current study versus 2.85 prior. Normal excretion is seen. No additional areas of abnormal hypermetabolic uptake. OSSEOUS STRUCTURES: No areas of abnormal hypermetabolic uptake. OTHER CT: Stable right internal jugular Mediport catheter. Calcified left suprahilar lymph nodes cons istent with products of old granulomatous disease. IMPRESSION: Overall mixed response as detailed above. Resolved hypermetabolic uptake in the rectal ne oplasm. Adjacent adenopathy shows mixed response. Liver lesions stable. New focal uptake in the right thyroid lobe could reflect a thyroid nodule or neoplasm. Follow-up advised.
== END | disposition home or self-care (01) ==
LOC: RADPETMAIN 07:30
PROVIDERS: ATTEND Internal Medicine Hematology & Oncology
DX: C21.0 Malignant neoplasm of anus, unspecified (principal); C20 Malignant neoplasm of rectum; K76.9 Liver disease, unspecified; R59.9 Enlarged lymph nodes, unspecified; Z92.21 Personal history of antineoplastic chemotherapy
CPT/HCPCS: 78815; A9552

== ENCOUNTER → 2022-08-25 | Outpatient (CLI) | payer BC ==
--- NOTE | 2022-08-25 17:02 | PE ---
Nuclear medicine PET/CT HISTORY: Rectal carcinoma, subsequent Patient received 10.9 mCi F-18 FDG intravenously and delayed scanning was performed from the skull ba se to the mid thighs. A localization and attenuation correction CT scan was performed. Average mediastinal uptake is 1.8, average liver uptake SUV 2.4. Chest and neck: There is no cervical adenopathy. Right-sided Port-A-Cath is present via jugular appro ach with its distal tip is at the cavoatrial junction. Right lobe of the thyroid gland shows a focus of abnormal uptake SUV is 4.7, findings similar to prior exam. No supraclavicular adenopathy.. No endobronchial lesion, pleural or pericardial effusion. No suspicious uptake. No evidence of lung m ass. ABDOMEN: There has been progression in the number and intensity of the liver masses, at least 5 liver masses are now seen, there has been progression compared to prior, SUV values 8.9 at the level of th e dome, 6.8 central portion of the right lobe, anteriorly within the right lobe SUV 5.5, inferiorly w ithin the right lobe SUV 8.4 and anteriorly within the left lobe SUV 10.3. Retroperitoneal adenopathy is noted anterior to the inferior vena cava, SUV is 5.5. There is no ascites or inguinal adenopathy. Along the rectum there is hypermetabolic uptake present, SUV is 10.1. On previous exam there is not significant uptake at this level. Left-sided pelvic adenopathy is present, SUV is 3.2. Additional lef t-sided pelvic lymph nodes present, SUV is 7.4. Posterior to the rectal uptake there is abnormal soft tissue present, SUV 9.1. Osseous structures show the level of the spinous process with sacral level focus of uptake, SUV is 6. 1 IMPRESSION: Progression of patient's liver masses and uptake as described.
== END | disposition home or self-care (01) ==
LOC: RADPETMAIN 12:46
PROVIDERS: ATTEND Internal Medicine Hematology & Oncology
DX: C20 Malignant neoplasm of rectum (principal); R16.0 Hepatomegaly, not elsewhere classified
CPT/HCPCS: 78815; A9552

== ENCOUNTER → 2022-12-08 | Outpatient (CLI) | payer BC ==
--- NOTE | 2022-12-10 07:51 | PE ---
EXAMINATION TYPE: PET CT fusion skull to thigh DATE OF EXAM: 12/08/2022 CLINICAL INDICATION:Male, 52 years old with history of C20; TECHNIQUE: Following the intravenous administration of 12.72 mCi of F-18 FDG, whole body images are performed from the skull base to the midthigh. Images are reviewed on the computer in the coronal, axial, and sagittal planes. Reconstructed rotating images are created on independent workstation and reviewed on the computer. A non-contrast CT is performed in conjunction with the PET scan. Glucose level 95 mg/dL COMPARISON: CT 10/24/2021, PET/CT 08/25/2022 FINDINGS: Mediastinal SUV mean is 1.3. Hepatic parenchyma SUV mean is 2.3. SKULL BASE AND NECK: No suspicious radiotracer activity. CHEST, MEDIASTINUM, AND HILAR REGION: No suspicious radiotracer activity. ABDOMEN AND PELVIS: Multiple hepatic lesions are seen throughout the liver which have increased in size and FDG activity. Previously there were 5 distinct lesions in the liver now there are at least 13. The largest in the right hepatic lobe near the dome central low FDG activity max SUV 10.8 and in left hepatic lobe max SUV 11.4. At bilateral * Lymph node at the portacaval region max SUV 6.1 measuring 16 mm in short axis on today's exam, pre viously 8 mm in short axis max SUV 5.5. * Soft tissue extending away from the rectum laterally to the right maxillary SUV 4.5, , previously 10.1. OSSEOUS STRUCTURES: Abnormal FDG activity within the sacrum posterior elements level of S2 spinous pr ocess max SUV 12.[address]: Atherosclerosis of the arterial vasculature including the coronary arteries. Right chest wa ll [id number] with tip terminating on the superior vena cava. Fat-containing umbilical hernia. Col onic diverticulosis. Bilateral fat-containing inguinal hernias. Multilevel disc degeneration changes throughout the spine. IMPRESSION: Progression of metastatic disease with increasing size and number of hepatic lesions, increase in met abolic activity within the S2 sacrum spinous process, increasing size and FDG activity of hermila hepat is lymph node. Note that the rectal FDG activity has decreased in on today's exam.
== END | disposition home or self-care (01) ==
LOC: RADPETMAIN 08:40
PROVIDERS: ATTEND Internal Medicine Hematology & Oncology
DX: C20 Malignant neoplasm of rectum (principal); C78.7 Secondary malignant neoplasm of liver and intrahepatic bile duct; C79.51 Secondary malignant neoplasm of bone; R59.0 Localized enlarged lymph nodes
CPT/HCPCS: 78815; A9552

== ENCOUNTER → 2023-03-23 | Outpatient (CLI) | payer BC ==
--- NOTE | 2023-03-24 10:33 | PE ---
EXAMINATION TYPE: PET CT fusion skull to thigh DATE OF EXAM: 03/23/2023 CLINICAL INDICATION:Male, 52 years old with history of C20; TECHNIQUE: Following the intravenous administration of 12.1 mCi of F-18 FDG, whole body images are performed from the skull base to the midthigh. Images are reviewed on the computer in the coronal, a xial, and sagittal planes. Reconstructed rotating images are created on independent workstation and reviewed on the computer. A non-contrast CT is performed in conjunction with the PET scan. Glucose level 107 mg/dL COMPARISON: CT 10/24/2021, PET/CT 12/08/2022, FINDINGS: Mediastinal SUV mean is 1.3. Hepatic parenchyma SUV mean is 2.0. SKULL BASE AND NECK: * Right thyroid gland posterior focal FDG activity max SUV 2.8 previously 2.0. CHEST, MEDIASTINUM, AND HILAR REGION: * AP window lymph node has mildly increased FDG activity max SUV 2.7, previously 1.4. * Right lower lobe 8 mm central cavitary lesion has increased previously without cavitation now joellen uring 4 mm Max SUV 1.8 ABDOMEN AND PELVIS: Multiple predominantly peripherally FDG avid lesions are seen throughout the liver is appear larger w ith more central cavitation compared to prior. Examples include: * Right hepatic lobe lesion with central calcification measuring 7.0 x 5.2 cm previously 6.4 x 4.5 c m max SUV 11.75 previously 11.54. * Left hepatic lobe lesion measuring 5.0 x 3.7 cm previously 3.8 x 3.5 cm max SUV 8.6 previously 11. 4. Previous studies in the lungs no aneurysm There are at least 9 other lesions present although which appear larger than prior some all with stab le to mildly increased or decreased radiotracer activity compared to prior. * Portacaval conglomerate lymph nodes are difficult to measure given lack of IV contrast. Max SUV 8. 2 previously 6.1 measuring 4.7 x 2.3 cm, previously 4.0 x 1.7 cm. * Retroperitoneal lymph node max SUV 4.6 is new measuring 8 mm in short axis. Additional left periao rtic lymph node is also new max SUV 2.5 measuring 1.0 cm in short axis. * Asymmetric right rectal wall FDG activity max SUV 7.3 previously 4.5. Now measuring at least 1.5 c m on PET imaging previously 0.[address] imaging is limited due to lack of contrast and CT t echnique. OSSEOUS STRUCTURES: * FDG activity within the sacrum S2 posteriorly max SUV 15.6, previously 12.2 * Right anterior rib 3 measuring 3.[address]: Right chest wall [id number] with tip in appropriate position. Prostate gland is enlarged measuring up to 4.8 cm. Right fat containing inguinal hernia. Right scrotal aixa with bilateral tra ce hydroceles. IMPRESSION: 1. Progression of disease with increasing size and FDG activity of right lateral rectal wall lesion as well as the sacral osseous lesion at the level of S2. Additionally, there is new retroperitoneal l ymph nodes FDG activity. Overall the liver has a mixed response based on metabolic activity but all d emonstrate increased cavitation/size compared to prior. 2. Left lower lung a 8 mm nodule with cavitation previously 4 mm without cavitation, could represent metastatic focus. Attention on follow-up imaging. 3. AP window lymph node with increased soft tissue with increasing FDG activity attention follow-up imaging. Given calcification could represent granulomatous disease. 4. FDG activity within the right rib 3 anteriorly correlate with history of trauma and tenderness fo r fracture 5. Posterior thyroid gland focus of FDG activity consider further evaluation by ultrasound if not re cently performed.
== END | disposition home or self-care (01) ==
LOC: RADPETMAIN 07:44
PROVIDERS: ATTEND Internal Medicine Hematology & Oncology
DX: C20 Malignant neoplasm of rectum (principal); M89.9 Disorder of bone, unspecified; R91.1 Solitary pulmonary nodule
CPT/HCPCS: 78815; A9552

== ENCOUNTER 2023-04-11 05:47 | Inpatient (IN) | payer BC ==
[2023-04-11] MEDS ORDERED: ONDANSETRON 4 MG/2 ML VIAL IVP STA (06:32)
[2023-04-11] MEDS ORDERED: SODIUM CHLORIDE 0.9% 500 ML 500 ML IV STA (06:32)
[2023-04-11] MEDS ORDERED: SODIUM CHLORIDE 0.9% 1,000 ML IV STA (06:32)
[2023-04-11] MEDS ORDERED: HYDROmorphone 1 MG/ML 1 ML SYRINGE IVP STA ×2 (06:33→11:08)
--- NOTE | 2023-04-11 06:42 | ED ---
Abdominal Pain HPI - General Chief Complaint: Abdominal Pain Stated Complaint: Abd Pain Time Seen by Provider: 04/11/23 06:15 Source: patient, RN notes reviewed Mode of arrival: ambulatory Limitations: no limitations - History of Present Illness Initial Comments: 52-year-old male presents emergency Department chief complaint of abdominal pain. Patient states feels constipated but states he has a history of rectal cancer with metastasis. Patient states he is concerning may have an obstruction. Patient is not current surgical candidate is a stage IV rectal cancer. Patient has tried some oral meds without relief of symptoms. Patient denies any. Chills does not nausea vomiting no chest pain or shortness of breath. Patient states the pain waxes and wanes - Related Data Home Medications Medication Instructions Recorded Confirmed Lisinopril-Hctz 20-12.5 mg 1 tab PO DAILY 07/05/20 07/09/20 [Zestoretic 20-12.5] Allergies Allergy/AdvReac Type Severity Reaction Status Date / Time No Known Allergies Allergy Verified 07/20/20 10:32 Review of Systems ROS Statement: Those systems with pertinent positive or pertinent negative responses have been documented in the HPI. ROS Other: All systems not noted in ROS Statement are negative. Past Medical History Past Medical History: Cancer, Hypertension Additional Past Medical History / Comment(s): rectal cancer diagnosed May 2020 and new liver mass to be biopsied 07/20/20 History of Any Multi-Drug Resistant Organisms: None Reported Past Surgical History: No Surgical Hx Reported Additional Past Surgical History / Comment(s): will have mediport placed Monday 07/09, colonoscopy Past Anesthesia/Blood Transfusion Reactions: No Reported Reaction Additional Past Anesthesia/Blood Transfusion Reaction / Comment(s): HAS NEVER HAD GENERAL ANESTHESIA Past Psychological History: No Psychological Hx Reported Smoking Status: Never smoker Past Alcohol Use History: Occasional Past Drug Use History: None Reported - Past Family History Mother Family Medical History: Cancer General Exam Limitations: no limitations General appearance: alert, in no apparent distress Head exam: Present: atraumatic, normocephalic, normal inspection Eye exam: Present: normal appearance, PERRL, EOMI. Absent: scleral icterus, conjunctival injection, periorbital swelling ENT exam: Present: normal exam, normal oropharynx, mucous membranes moist Neck exam: Present: normal inspection, full ROM. Absent: tenderness, meningismus, lymphadenopathy Respiratory exam: Present: normal lung sounds bilaterally. Absent: respiratory distress, wheezes, rales, rhonchi, stridor Cardiovascular Exam: Present: normal rhythm, tachycardia, normal heart sounds. Absent: systolic murmur, diastolic murmur, rubs, gallop, clicks GI/Abdominal exam: Present: soft, tenderness, normal bowel sounds. Absent: distended, guarding, rebound, rigid Back exam: Absent: CVA tenderness (R), CVA tenderness (L) Neurological exam: Present: alert Skin exam: Present: warm, dry, intact, normal color. Absent: rash Course Vital Signs 04/11/23 04/11/23 05:51 08:00 Temperature 98.1 F Pulse Rate 119 H 89 Respiratory 18 18 Rate Blood Pressure 153/68 133/86 O2 Sat by Pulse 98 99 Oximetry Medical Decision Making - Medical Decision Making Was pt. sent in by a medical professional or institution (RONALDO Witt, [employer], urgent care, hospital, or [place] health care facility...) When possible be specific @ -No Did you speak to anyone other than the patient for history (EMS, parent, family, police, friend...)? What history was obtained from this source @ - in the room providing significant past medical history Did you review nursing and triage notes (agree or disagree)? Why? @ -I reviewed and agree with nursing and triage notes Were old charts reviewed (outside hosp., previous admission, EMS record, old EKG, old radiological studies, urgent care reports/EKG's, [place] health care facility records)? Report findings @ -Reviewed prior oncology notes Differential Diagnosis (chest pain, altered mental status, abdominal pain women, abdominal pain men, vaginal bleeding, weakness, fever, dyspnea, syncope, headache, dizziness, GI bleed, back pain, seizure, CVA, palpatations, mental health, musculoskeletal)? @ -Differential Abdominal Pain Men: Appendicitis, cholecystitis, diverticulosis, ischemic bowel, pancreatitis, hepatitis, UTI, gastroenteritis, AAA, incarcerated hernia, bowel obstruction, constipation, inflammatory bowel, hepatitis, peptic ulcer disease, splenic infarction, perforated viscus, testicular torsion, this is not meant to be an all-inclusive liste EKG interpreted by me (3pts min.). @ -None X-rays interpreted by me (1pt min.). @ -None done CT interpreted by me (1pt min.). @ -CT of pelvis shows distal colonic obstruction secondary to rectal mass with progression of metastatic disease U/S interpreted by me (1pt. min.). @ -None done What testing was considered but not performed or refused? (CT, X-rays, U/S, labs)? Why? @ -None What meds were considered but not given or refused? Why? @ -None Did you discuss the management of the patient with other professionals (professionals i.e. , PA, [employer], lab, RT, psych nurse, director of social work, warehouse traffic supervisor, teacher, first aid officer, rehabilitation case coordinator)? Give summary @ - sheet for admission secondary to bowel obstruction, brain significant amount of pain medication, metastatic cancer. He will have oncology consult and surgery consult Was smoking cessation discussed for >3mins.? @ -No Was critical care preformed (if so, how long)? @ -No Were there social determinants of health that impacted care today? How? (Homelessness, low income, unemployed, alcoholism, drug addiction, transportation, low edu. Level, literacy, decrease access to med. care, [facility], rehab)? @ -No Was there de-escalation of care discussed even if they declined (Discuss DNR or withdrawal of care, Hospice)? DNR status @ -No What co-morbidities impacted this encounter? (DM, HTN, Smoking, COPD, CAD, Cancer, CVA, ARF, Chemo, Hep., AIDS, mental health diagnosis, sleep apnea, morbid obesity)? @ -None Was patient admitted / discharged? Hospital course, mention meds given and rou te, prescriptions, significant lab abnormalities, going to OR and other pertinent info. @ -Admitted for colonic obstruction with progression of metastatic cancer Surgery and Oncology evaluation Undiagnosed new problem with uncertain prognosis? @ -Yes Drug Therapy requiring intensive monitoring for toxicity (Heparin, Nitro, Insulin, Cardizem)? @ -No Were any procedures done? @ -No Diagnosis/symptom? @ -Colonic obstruction, metastatic cancer Acute, or Chronic, or Acute on Chronic? @ -Acute Uncomplicated (without systemic symptoms) or Complicated (systemic symptoms)? @ -Complicated Side effects of treatment? @ -No Exacerbation, Progression, or Severe Exacerbation? @ -No Poses a threat to life or bodily function? How? (Chest pain, [place], CA, pneumonia, PE, COPD, DKA, ARF, appy, cholecystitis, CVA, Diverticulitis, Homicidal, Suicidal, threat to staff... and all critical care pts) @ -Yes patient has metastatic cancer with current colonic obstruction - Lab Data Result diagrams: 04/11/23 06:36 04/11/23 06:36 Lab Results 04/11/23 04/11/23 04/11/23 Range/Units 06:36 06:36 06:36 WBC 7.3 (3.8-10.6) k/uL RBC 4.90 (4.30-5.90) m/uL Hgb 13.9 (13.0-17.5) gm/dL Hct 41.9 (39.0-53.0) % MCV 85.5 (80.0-100.0) fL MCH 28.3 (25.0-35.0) pg MCHC 33.0 (31.0-37.0) g/dL RDW 16.0 H (11.5-15.5) % Plt Count 282 (150-450) k/uL MPV 7.0 Neutrophils % 76 % Lymphocytes % 11 % Monocytes % 10 % Eosinophils % 1 % Basophils % 0 % Neutrophils # 5.6 (1.3-7.7) k/uL Lymphocytes # 0.8 L (1.0-4.8) k/uL Monocytes # 0.7 (0-1.0) k/uL Eosinophils # 0.0 (0-0.7) k/uL Basophils # 0.0 (0-0.2) k/uL Anisocytosis Slight Sodium 137 (137-145) mmol/L Potassium 4.1 (3.5-5.1) mmol/L Chloride 100 (98-107) mmol/L Carbon Dioxide 21 L (22-30) mmol/L Anion Gap 16 mmol/L BUN 9 (9-20) mg/dL Creatinine 0.72 (0.66-1.25) mg/dL Est GFR (CKD-EPI)AfAm >90 (>60 ml/min/1.73 sqM) Est GFR (CKD-EPI)NonAf >90 (>60 ml/min/1.73 sqM) Glucose 118 H (74-99) mg/dL Plasma Lactic Acid Virgilio 3.9 H* (0.7-2.0) mmol/L Calcium 9.9 (8.4-10.2) mg/dL Total Bilirubin 1.0 (0.2-1.3) mg/dL AST 113 H (17-59) U/L ALT 100 H (4-49) U/L Alkaline Phosphatase 292 H (38-126) U/L Total Protein 7.6 (6.3-8.2) g/dL Albumin 4.4 (3.5-5.0) g/dL Lipase 102 (23-300) U/L Urine Color Urine Appearance (Clear) Urine pH (5.0-8.0) Ur Specific [place] (1.001-1.035) Urine Protein (Negative) Urine Glucose (UA) (Negative) Urine Ketones (Negative) Urine Blood (Negative) Urine Nitrite (Negative) Urine Bilirubin (Negative) Urine Urobilinogen (<2.0) mg/dL Ur Leukocyte Esterase (Negative) 04/11/23 Range/Units 08:00 WBC (3.8-10.6) k/uL RBC (4.30-5.90) m/uL Hgb (13.0-17.5) gm/dL Hct (39.0-53.0) % MCV (80.0-100.0) fL MCH (25.0-35.0) pg MCHC (31.0-37.0) g/dL RDW (11.5-15.5) % Plt Count (150-450) k/uL MPV Neutrophils % % Lymphocytes % % Monocytes % % Eosinophils % % Basophils % % Neutrophils # (1.3-7.7) k/uL Lymphocytes # (1.0-4.8) k/uL Monocytes # (0-1.0) k/uL Eosinophils # (0-0.7) k/uL Basophils # (0-0.2) k/uL Anisocytosis Sodium (137-145) mmol/L Potassium (3.5-5.1) mmol/L Chloride (98-107) mmol/L Carbon Dioxide (22-30) mmol/L Anion Gap mmol/L BUN (9-20) mg/dL Creatinine (0.66-1.25) mg/dL Est GFR (CKD-EPI)AfAm (>60 ml/min/1.73 sqM) Est GFR (CKD-EPI)NonAf (>60 ml/min/1.73 sqM) Glucose (74-99) mg/dL Plasma Lactic Acid Virgilio (0.7-2.0) mmol/L Calcium (8.4-10.2) mg/dL Total Bilirubin (0.2-1.3) mg/dL AST (17-59) U/L ALT (4-49) U/L Alkaline Phosphatase (38-126) U/L Total Protein (6.3-8.2) g/dL Albumin (3.5-5.0) g/dL Lipase (23-300) U/L Urine Color Yellow Urine Appearance Clear (Clear) Urine pH 5.5 (5.0-8.0) Ur Specific [place] 1.029 (1.001-1.035) Urine Protein Negative (Negative) Urine Glucose (UA) Negative (Negative) Urine Ketones 2+ H (Negative) Urine Blood Negative (Negative) Urine Nitrite Negative (Negative) Urine Bilirubin Negative (Negative) Urine Urobilinogen <2.0 (<2.0) mg/dL Ur Leukocyte Esterase Negative (Negative) Disposition Clinical Impression: Malignant neoplasm of rectum metastatic to liver, Colonic obstruction Disposition: ADMITTED IP TO THIS HOSP Condition: Poor Referrals: Ben Cheek DO [Primary Care Provider] - 1-2 days Time of Disposition: 08:41
[2023-04-11 06:51] LABS: Anisocytosis Slight; Basophils % (A) 0 %; Eosinophils % (A) 1 %; HCT 41.9 % (39.0-53.0); HGB 13.9 gm/dL (13.0-17.5); Lymphocytes # (A) 0.8 k/uL (1.0-4.8); Lymphocytes % (A) 11 %; MCH 28.3 pg (25.0-35.0); MCV 85.5 fL (80.0-100.0); Monocytes # (A) 0.7 k/uL (0-1.0); Monocytes % (A) 10 %; Neutrophils # (A) 5.6 k/uL (1.3-7.7); Neutrophils % (A) 76 %; Platelet Count 282 k/uL (150-450); WBC 7.3 k/uL (3.8-10.6)
[2023-04-11 06:52] LABS: ALT 100 U/L (4-49); AST 113 U/L (17-59); African American GFR (CKD) >90 (>60 ml/min/1.73 sqM); Albumin 4.4 g/dL (3.5-5.0); Alkaline Phosphatase 292 U/L (38-126); Anion Gap 16 mmol/L; Blood Urea Nitrogen 9 mg/dL (9-20); Calcium 9.9 mg/dL (8.4-10.2); Carbon Dioxide 21 mmol/L (22-30); Chloride 100 mmol/L (98-107); Glucose 118 mg/dL (74-99); Lipase 102 U/L (23-300); Non-African American GFR(CKD) >90 (>60 ml/min/1.73 sqM); Potassium 4.1 mmol/L (3.5-5.1); Sodium 137 mmol/L (137-145); Total Protein 7.6 g/dL (6.3-8.2)
--- NOTE | 2023-04-11 08:12 | CT ---
EXAMINATION TYPE: CT abdomen pelvis w con DATE OF EXAM: 04/11/2023 COMPARISON: PET/CT 03/23/2023 HISTORY: 52-year-old male abdominal pain rule out obstruction, history of rectal cancer with metastas es . TECHNIQUE: Contiguous axial scanning of the abdomen and pelvis following administration of 100 ml Iso kev 300 IV contrast. Delayed images through the kidneys and coronal/sagittal reconstructions perform ed. CT DLP: 991.4 mGycm Automated exposure control for dose reduction was used. FINDINGS: Heart normal size with trace anterior pericardial fluid. There is a small hiatal hernia. Th ere is a 1.1 cm posterior left basilar pulmonary nodule, increased from 8 mm, previously. No pleural effusion. Numerous cannonball metastases to the liver. These are either stable or larger for example measuring 7.6 cm at the right hepatic dome versus 7.3 cm, previously. 7.1 cm lateral right liver lobe versus 6. 7 cm, previously. 6.8 cm centrally in the liver versus 5.9 cm, previously. Portal venous system is pa tent. No biliary ductal dilatation. Large portacaval lymph node measures 4.8 x 2.3 cm versus approximately 4.6 x 2.5 cm, previously, not significantly changed. A few retroperitoneal nodes are slightly larger at 2.0 cm aortocaval versus 1.6 cm, previously. Retro caval node at 1.3 cm versus 1.2 cm, previously. No dilated small bowel, free fluid, or free air. There is moderate to large stool burden especially along the distal aspect of the colon. Suspect gaxiola sition point secondary to annular soft tissue thickening and narrowing at the level of the rectum. Di stal sigmoid colon is distended up to 5.1 cm wide and shows mild wall thickening as well. Similar rig ht perirectal soft tissue extension measuring 3.0 cm versus 2.6 cm, previously. Trace pelvic ascites likely reactive. A left perirectal soft tissue deposit measures 2.1 cm versus 1.5 cm, previously. Als o along the left internal iliac chain measuring 2.2 cm versus 1.8 cm, previously. Bones: Moderate degenerative disc disease L5-S1. Anterior endplate spondylosis lower thoracic spine. Suspect a lytic lesion involving the S2 spinous process. IMPRESSION: 1. SUSPECT DISTAL COLONIC OBSTRUCTION AT THE LEVEL OF THE UPPER RECTUM SECONDARY TO ANNULAR SOFT TISS UE THICKENING AND NARROWING, LIKELY FROM PATIENT'S UNDERLYING RECTAL CANCER. 2. LOCAL DISEASE HAS INCREASED WITH AN ENLARGING RIGHT PERIRECTAL SOFT TISSUE EXTENSION AND 2 ENLARGI NG LEFT PERIRECTAL SOFT TISSUE DEPOSITS. 3. ADDITIONAL METASTATIC DISEASE PROGRESSION WITH ENLARGING LEFT BASILAR PULMONARY NODULE, STABLE OR ENLARGING MULTIPLE HEPATIC CANNONBALL METASTASES, ENLARGING RETROPERITONEAL/PORTACAVAL NODES, AND NOW APPARENT LYTIC LESION TO THE S2 SPINOUS PROCESS.
[2023-04-11 08:23] LABS: Appearance,Urine Clear (Clear); Bilirubin,Urine Negative (Negative); Blood,Urine Negative (Negative); Color,Urine Yellow; Glucose,Urine (UA) Negative (Negative); Ketones,Urine 2+ (Negative); Leukocyte Esterase,Urine Negative (Negative); Nitrite,Urine Negative (Negative); PH, Urine 5.5 (5.0-8.0); Protein,Urine Negative (Negative); Specific Gravity,Urine 1.029 (1.001-1.035); Urobilinogen,Urine <2.0 mg/dL (<2.0)
[2023-04-11] MEDS ORDERED: NALOXONE 0.4 MG/ML 1 ML VIAL IV PRN (09:03)
[2023-04-11] MEDS: SODIUM CHLORIDE 0.9% 1,000 ML IV SCH ×2 (09:24→18:23)
--- NOTE | 2023-04-11 11:15 | P.HPIM ---
History of Present Illness This is a pleasant 52 years old male with past medical history of hypertension Presents because of abdominal pain and nausea vomiting with no bowel movement for the last 5-6 days. Patient says that is been having constipation, for the last 7 days he did not have bowel movement, yesterday he took extra dose of laxative and at night he had more severe abdominal pain, his pain mainly in the lower abdomen, nonradiating, nonspecific or colicky in nature. Associated with vomiting several times this morning, no blood in it. Patient denies chest pain or dyspnea. No urinary complaints, no neurological complaints lightheaded dizziness weakness or numbness. Patient is a nonsmoker, he is not actively drinking alcohol currently. He has been diagnosed with rectal cancer about 3 years ago now is following up with Dr. Main, he received several chemotherapy and now in the process to switch to another Regimen as per at bedside. He got radiotherapy that his rectal area last year when he has similar presentation and that helped him then Vitals stable Unremarkable CBC, BMP. Lactic acid elevated at 3.9 Liver enzymes elevated AST 113, ALT 100, normal bilirubin. Lipase normal 102. urine analysis is not suspicious for infection. CT of the abdomen and pelvis with contrast: Left basilar pulmonary nodule increased 0.8 cm up to 1.1 cm. Multiple cannonball metastasis to the liver larger 7.6 cm in the right hepatic dome compared to 7.3 cm previously Enlarged portacaval lymph node 4.82.3 cm, slightly larger from before. A few extra peritoneal nodes largest at 2.0 cm, there is moderate to large stool burden especially along the distal aspect of the colon , secondary to soft tissue thickening and narrowing of the level of the rectum. Also has lytic lesion to S2 spinous process Patient currently has normal saline running at 1 30 mL/h, has Dilaudid started, patient is nothing by mouth with surgery and hematology/oncology service consults Review of Systems Review of systems CONSTITUTIONAL: No fever, no malaise, no fatigue. HEENT: No recent visual problems or hearing problems. Denied any sore throat. CARDIOVASCULAR: No orthopnea, PND, no palpitations, no syncope. PULMONARY: No shortness of breath, no cough, no hemoptysis. GASTROINTESTINAL: No diarrhea. Normoactive bowel sounds. NEUROLOGICAL: No headaches, no weakness, no numbness. HEMATOLOGICAL: Denies any bleeding or petechiae. GENITOURINARY: Denies any burning micturition, frequency, or urgency. MUSCULOSKELETAL/RHEUMATOLOGICAL: Denies any joint pain, swelling, or any muscle pain. ENDOCRINE: Denies any polyuria or polydipsia. Past Medical History Past Medical History: Cancer, Hypertension Additional Past Medical History / Comment(s): rectal cancer diagnosed May 2020 and new liver mass to be biopsied 07/20/20 History of Any Multi-Drug Resistant Organisms: None Reported Past Surgical History: No Surgical Hx Reported Additional Past Surgical History / Comment(s): will have mediport placed Monday 07/09, colonoscopy Past Anesthesia/Blood Transfusion Reactions: No Reported Reaction Additional Past Anesthesia/Blood Transfusion Reaction / Comment(s): HAS NEVER HAD GENERAL ANESTHESIA Past Psychological History: No Psychological Hx Reported Smoking Status: Never smoker Past Alcohol Use History: Occasional Past Drug Use History: None Reported - Past Family History Mother Family Medical History: Cancer Medications and Allergies Home Medications Medication Instructions Recorded Confirmed Type Lisinopril-Hctz 20-12.5 mg 1 tab PO DAILY 07/05/20 07/09/20 History [Zestoretic 20-12.5] Allergies Allergy/AdvReac Type Severity Reaction Status Date / Time No Known Allergies Allergy Verified 07/20/20 10:32 Physical Exam Vitals: Vital Signs Temp Pulse Resp BP Pulse Ox 04/11/23 09:14 95 20 121/82 98 04/11/23 08:00 89 18 133/86 99 04/11/23 05:51 98.1 F 119 H 18 153/68 98 Intake and Output 04/10/23 04/11/23 04/11/23 22:59 06:59 14:59 Other: Weight 79.379 kg GENERAL: The patient is alert and oriented x3, not in any acute distress. Well developed, well nourished. HEENT: Pupils are round and equally reacting to light. EOMI. No scleral icterus. No conjunctival pallor. Normocephalic, atraumatic. No pharyngeal erythema. No th yromegaly. CARDIOVASCULAR: S1 and S2 present. No murmurs, rubs, or gallops. PULMONARY: Chest is clear to auscultation, no wheezing or crackles. -ABDOMEN: Soft, tenderness, nondistended, normoactive bowel sounds. No palpable organomegaly. MUSCULOSKELETAL: No joint swelling or deformity. EXTREMITIES: No cyanosis, clubbing, or pedal edema. NEUROLOGICAL: Gross neurological examination did not reveal any focal deficits. SKIN: No rashes. no petechiae. Results CBC & Chem 7: 04/11/23 06:36 04/11/23 06:36 Labs: Abnormal Lab Results - Last 24 Hours (Table) 04/11/23 04/11/23 04/11/23 Range/Units 06:36 06:36 06:36 RDW 16.0 H (11.5-15.5) % Lymphocytes # 0.8 L (1.0-4.8) k/uL Carbon Dioxide 21 L (22-30) mmol/L Glucose 118 H (74-99) mg/dL Plasma Lactic Acid Virgilio 3.9 H* (0.7-2.0) mmol/L AST 113 H (17-59) U/L ALT 100 H (4-49) U/L Alkaline Phosphatase 292 H (38-126) U/L Urine Ketones (Negative) 04/11/23 Range/Units 08:00 RDW (11.5-15.5) % Lymphocytes # (1.0-4.8) k/uL Carbon Dioxide (22-30) mmol/L Glucose (74-99) mg/dL Plasma Lactic Acid Virgilio (0.7-2.0) mmol/L AST (17-59) U/L ALT (4-49) U/L Alkaline Phosphatase (38-126) U/L Urine Ketones 2+ H (Negative) Assessment and Plan Assessment: -distal colon Obstruction with moderate to large stool burden, secondary to rectal stricture -recently diagnosed rectal cancer, since May 2020 and multiple liver metastasis, retroperitoneal lymphadenopathy metastasis, spine metastasis to S2 spinous process and possible pulmonary nodule -Left basilar pulmonary nodule increased 0.8 cm up to 1.1 cm, mostly secondary to metastatic disease -ild transaminitis -Elevated lactic acid on admission -Hypertension Plan: Bowel rest IV fluids Pain medication Surgery consult Hematology/oncology consult Labs and medication were reviewed.. Continue same treatment. Continue with symptomatic treatment. Resume home medication. Monitor labs and vitals. DVT and GI prophylaxis. Further recommendations as per clinical course of the patient DVT prophylaxis: Subcutaneous heparin GI Prophylaxis: Pepcid PT/OT: Pending Prognosis is guarded
[2023-04-11] MEDS: HYDROmorphone 0.5 MG/0.5 ML SYRINGE IVP PRN ×3 (11:16→21:05)
--- NOTE | 2023-04-11 13:08 | P.GSCN ---
History of Present Illness Consult date: 04/11/23 History of present illness: CHIEF COMPLAINT: Abdominal pain HISTORY OF PRESENT ILLNESS: This is a 52-year-old male who presented to the hospital with complaints of abdominal pain. He complains of lower abdominal discomfort. He reports doing with constipation for the past 6 days. He reports no bowel movement or flatus. He is passing down some small liquidy stools. The stool sometimes contain mucus and blood which is not new for him. He did have some flatus last night. Yesterday he was having nausea and vomiting this has resolved. He is requiring pain medication. He has continuous pressure in the rectum which is chronic. Patient has a known history of rectal cancer with metastatic disease. On his last chemotherapy was about 2 weeks ago. His oncologist is Dr. Lopez. His CAT scan of the abdomen and pelvis report suspected distal colonic obstruction at the level of the upper rectum secondary to annular soft tissue thickening and narrowing. Likely from patient's underlying rectal cancer. Local disease has increased with an enlarging right perirectal soft tissue extension into enlarging left perirectal soft tissue deposits. Additional metastatic disease progression with enlarging left basilar pulmonary nodule, stable or enlarging multiple hepatic cannonball metastasis enlarging retroperitoneal/portacaval nodes and now apparently lytic lesions to the S2 spinous process. Surgical service has been consulted for bowel obstruction. Patient reports no prior surgical history for rectal cancer. PAST MEDICAL HISTORY: Rectal cancer with metastatic disease PAST SURGICAL HISTORY: See below MEDICATIONS: See below ALLERGIES: See below SOCIAL HISTORY: No illicit drug use. REVIEW OF SYSTEMS: CONSTITUTIONAL: Denies fever or chills. HEENT: Denies blurred vision, vision changes, or eye pain. Denies hemoptysis CARDIOVASCULAR: Denies chest pain or pressure. RESPIRATORY: No shortness of breath. GASTROINTESTINAL: See HPI for pertinent findings HEMATOLOGIC: Denies bleeding disorders. GENITOURINARY: Denies any blood in urine or increased urinary frequency. SKIN: Denies pruitis. Denies rash. PHYSICAL EXAM: VITAL SIGNS: Reviewed GENERAL: Well-developed in no acute distress. HEENT: No sclera icterus. Extraocular movements grossly intact. Moist buccal mucosa. Head is atraumatic, normocephalic. No nasal drainage. ABDOMEN: Soft. Nondistended. Tender with palpation of the lower abdomen NEUROLOGIC: Alert and oriented. Cranial nerves II through XII grossly intact. LABORATORY DATA: WBC 7.3, HGB 13.9 plt 282 Sodium 137 potassium is 4.1 creatinine 0.72 Lactic acid 3.9-0.9 Total bilirubin 1.0 AST 113 ALT 100 alk phos 292 Lipase 102 IMAGING: Computed tomography scan findings as stated above ASSESSMENT: 1. Suspected distal colonic obstruction at the level of the upper rectum possibly due to patient's underlying rectal cancer 2. History of rectal cancer with metastases PLAN: -Further recommendations forthcoming per surgeon -Keep patient nothing by mouth -Continue IV fluids -Continue pain medication and antiemetics as needed Physician Activities Manager note has been reviewed by physician. Signing provider agrees with the documented findings, assessment, and plan of care. I have personally seen and examined the patient, reviewed the [employer] /PAs history, exam and MDM and agree with the assessment and plan as written. Based on total visit time, I have performed more than 50% of the visit. As above: Patient seen while he was in the emergency department yesterday. Patient with radiologic and clinical history consistent with partial colonic obstruction. He did have a small bowel movement and a very small amount of flatus overnight. Still having crampy abdominal pain and bloating. We'll proceed with diverting loop colostomy at this time. Risks of bleeding, infection, scarring, hernia, prolapse, obstruction, anesthesia related complications reviewed. He understands and wishes to proceed. Also discussed case with his . Past Medical History Past Medical History: Cancer, Hypertension Additional Past Medical History / Comment(s): rectal cancer diagnosed May 2020 and new liver mass to be biopsied 07/20/20 History of Any Multi-Drug Resistant Organisms: None Reported Past Surgical History: No Surgical Hx Reported Additional Past Surgical History / Comment(s): will have mediport placed Monday 07/09, colonoscopy Past Anesthesia/Blood Transfusion Reactions: No Reported Reaction Additional Past Anesthesia/Blood Transfusion Reaction / Comm: HAS NEVER HAD GENERAL ANESTHESIA Past Psychological History: No Psychological Hx Reported Smoking Status: Never smoker Past Alcohol Use History: Occasional Past Drug Use History: None Reported - Past Family History Mother Family Medical History: Cancer Medications and Allergies Home Medications Medication Instructions Recorded Confirmed Type Docusate [Colace] 100 mg PO BID PRN 04/11/23 04/11/23 History lisinopriL [Zestril] 20 mg PO DAILY 04/11/23 04/11/23 History oxyCODONE-APAP 10-325MG [Percocet 1 tab PO Q6HR PRN 04/11/23 04/11/23 History 10-325 mg] polyethylene glycoL 3350 [Miralax] 17 gm PO DAILY PRN 04/11/23 04/11/23 History Allergies Allergy/AdvReac Type Severity Reaction Status Date / Time No Known Allergies Allergy Verified 04/11/23 11:28 Surgical - Exam Vital Signs Temp Pulse Resp BP Pulse Ox 98.1 F 119 H 18 153/68 98 04/11/23 05:51 04/11/23 05:51 04/11/23 05:51 04/11/23 05:51 04/11/23 05:51 Results - Labs 04/12/23 06:12 04/12/23 06:12 Abnormal Lab Results - Last 24 Hours (Table) 04/11/23 04/11/23 04/11/23 Range/Units 06:36 06:36 06:36 RDW 16.0 H (11.5-15.5) % Lymphocytes # 0.8 L (1.0-4.8) k/uL Carbon Dioxide 21 L (22-30) mmol/L Glucose 118 H (74-99) mg/dL Plasma Lactic Acid Virgilio 3.9 H* (0.7-2.0) mmol/L AST 113 H (17-59) U/L ALT 100 H (4-49) U/L Alkaline Phosphatase 292 H (38-126) U/L Urine Ketones (Negative) 04/11/23 Range/Units 08:00 RDW (11.5-15.5) % Lymphocytes # (1.0-4.8) k/uL Carbon Dioxide (22-30) mmol/L Glucose (74-99) mg/dL Plasma Lactic Acid Virgilio (0.7-2.0) mmol/L AST (17-59) U/L ALT (4-49) U/L Alkaline Phosphatase (38-126) U/L Urine Ketones 2+ H (Negative) Diabetes panel 04/11/23 Range/Units 06:36 Sodium 137 (137-145) mmol/L Potassium 4.1 (3.5-5.1) mmol/L Chloride 100 (98-107) mmol/L Carbon Dioxide 21 L (22-30) mmol/L BUN 9 (9-20) mg/dL Creatinine 0.72 (0.66-1.25) mg/dL Glucose 118 H (74-99) mg/dL Calcium 9.9 (8.4-10.2) mg/dL AST 113 H (17-59) U/L ALT 100 H (4-49) U/L Alkaline Phosphatase 292 H (38-126) U/L Total Protein 7.6 (6.3-8.2) g/dL Albumin 4.4 (3.5-5.0) g/dL Calcium panel 04/11/23 Range/Units 06:36 Calcium 9.9 (8.4-10.2) mg/dL Albumin 4.4 (3.5-5.0) g/dL Pituitary panel 04/11/23 Range/Units 06:36 Sodium 137 (137-145) mmol/L Potassium 4.1 (3.5-5.1) mmol/L Chloride 100 (98-107) mmol/L Carbon Dioxide 21 L (22-30) mmol/L BUN 9 (9-20) mg/dL Creatinine 0.72 (0.66-1.25) mg/dL Glucose 118 H (74-99) mg/dL Calcium 9.9 (8.4-10.2) mg/dL Adrenal panel 04/11/23 Range/Units 06:36 Sodium 137 (137-145) mmol/L Potassium 4.1 (3.5-5.1) mmol/L Chloride 100 (98-107) mmol/L Carbon Dioxide 21 L (22-30) mmol/L BUN 9 (9-20) mg/dL Creatinine 0.72 (0.66-1.25) mg/dL Glucose 118 H (74-99) mg/dL Calcium 9.9 (8.4-10.2) mg/dL Total Bilirubin 1.0 (0.2-1.3) mg/dL AST 113 H (17-59) U/L ALT 100 H (4-49) U/L Alkaline Phosphatase 292 H (38-126) U/L Total Protein 7.6 (6.3-8.2) g/dL Albumin 4.4 (3.5-5.0) g/dL
--- NOTE | 2023-04-11 18:05 | P.CONS ---
History of Present Illness - Reason for Consult Consult date: 04/11/23 hx rectal cancer Requesting physician: Timur Guerrero - Chief Complaint abdominal pain - History of Present Illness Patient is a 52-year-old male with a significant history of metastatic rectal cancer. He is a patient of Dr. Main. On 05/2020, he had/ his first colonoscopy which revealed proximal rectal mass, biopsy was positive for invasive moderately differentiated adenocarcinoma. CT scan of chest/abdomen/pelvis on 06/2020 revealed masslike thickening in mid rectum and multiple adjacent mesorectal and presacral nodule, 2 retroperitoneal nodes, numerous liver lesions in both lobes, and a non specific 3 mm LLL lung nodule. MRI of pelvis revealed multiple small suspicious regional nodes,and there was a concerning 1.5 cm osseous lesion in right inferior sacrum. Liver biopsy on 07/2020 was positive for metastatic carcinoma consistent with colorectal primary. Due to disease progression patient has been on multiple treatment regimens. He had palliative XRT to rectal lesion in August/2022 He was started on regorafenib in December/2022, but PET scan on 03/23/2023 revealed evidence of disease progression. Regorafenib was then stopped. Plan is for patient to start oxaliplatin and xeloda, but has not begun new treatment. patient presented to the emergency room with complaints of lower abdominal pain and constipation. He's a sed. Pain began to worsen last night. Patient reports blood in stool but reports this is been an ongoing issue since diagnosis. He also reports nausea and vomiting. Patient denies fever and chills.patient reports improvement and abdominal pain with IV pain medications. Vomiting has subsided. Upon admission CT abdomen and pelvis revealed suspected distal colonic obstruction at the level of the upper rectum secondary to annular soft tissue thickening and narrowing, likely from patient's underlying rectal cancer. Local disease has increased with enlarging right perirectal soft tissue extension into enlarging left perirectal soft tissue deposits. Additional metastatic disease progression with enlarging left basilar pulmonary nodule, stable enlarged and multiple hepatic lackey ball metastases, enlarging retroperitoneal/portacaval nodes, and apparent lytic lesion to the S2 spinous process. Surgery has been consulted for evaluation for colonic obstruction. Hemoglobin 13.9, WBC 7.3, platelets 282,000. Patient is afebrile. Review of Systems 10 point ROS is negative except as stated in the HPI Past Medical History Past Medical History: Cancer, Hypertension Additional Past Medical History / Comment(s): rectal cancer diagnosed May 2020 and new liver mass to be biopsied 07/20/20 History of Any Multi-Drug Resistant Organisms: None Reported Past Surgical History: No Surgical Hx Reported Additional Past Surgical History / Comment(s): will have mediport placed Monday 07/09, colonoscopy Past Anesthesia/Blood Transfusion Reactions: No Reported Reaction Additional Past Anesthesia/Blood Transfusion Reaction / Comm: HAS NEVER HAD GENERAL ANESTHESIA Past Psychological History: No Psychological Hx Reported Smoking Status: Never smoker Past Alcohol Use History: Occasional Past Drug Use History: None Reported - Past Family History Mother Family Medical History: Cancer Medications and Allergies Home Medications Medication Instructions Recorded Confirmed Type Docusate [Colace] 100 mg PO BID PRN 04/11/23 04/11/23 History lisinopriL [Zestril] 20 mg PO DAILY 04/11/23 04/11/23 History oxyCODONE-APAP 10-325MG [Percocet 1 tab PO Q6HR PRN 04/11/23 04/11/23 History 10-325 mg] polyethylene glycoL 3350 [Miralax] 17 gm PO DAILY PRN 04/11/23 04/11/23 History Allergies Allergy/AdvReac Type Severity Reaction Status Date / Time No Known Allergies Allergy Verified 04/11/23 11:28 Physical Exam Vitals: Vital Signs Temp Pulse Resp BP Pulse Ox 04/11/23 09:14 95 20 121/82 98 04/11/23 08:00 89 18 133/86 99 04/11/23 05:51 98.1 F 119 H 18 153/68 98 Intake and Output 04/10/23 04/11/23 04/11/23 22:59 06:59 14:59 Other: Weight 79.379 kg - Constitutional General appearance: average body habitus, no acute distress - EENT Eyes: anicteric sclerae, EOMI ENT: hearing grossly normal - Respiratory Respiratory: bilateral: CTA - Cardiovascular Rhythm: regular Heart sounds: normal: S1, S2 Abnormal Heart Sounds: no systolic murmur, no diastolic murmur, no rub, no S3 Gallop, no S4 Gallop, no click, no other - Gastrointestinal mildly distended General gastrointestinal: soft, tenderness Localized gastrointestinal: tender: diffuse (greater in lower abdomen ) - Integumentary Integumentary: no cyanotic, no rash - Neurologic grossly intact - Musculoskeletal Musculoskeletal: strength equal bilaterally - Psychiatric Psychiatric: A&O x's 3, appropriate affect, intact judgment & insight Results CBC & Chem 7: 04/11/23 06:36 04/11/23 06:36 Labs: Abnormal Lab Results - Last 24 Hours (Table) 04/11/23 04/11/23 04/11/23 Range/Units 06:36 06:36 06:36 RDW 16.0 H (11.5-15.5) % Lymphocytes # 0.8 L (1.0-4.8) k/uL Carbon Dioxide 21 L (22-30) mmol/L Glucose 118 H (74-99) mg/dL Plasma Lactic Acid Virgilio 3.9 H* (0.7-2.0) mmol/L AST 113 H (17-59) U/L ALT 100 H (4-49) U/L Alkaline Phosphatase 292 H (38-126) U/L Urine Ketones (Negative) 04/11/23 Range/Units 08:00 RDW (11.5-15.5) % Lymphocytes # (1.0-4.8) k/uL Carbon Dioxide (22-30) mmol/L Glucose (74-99) mg/dL Plasma Lactic Acid Virgilio (0.7-2.0) mmol/L AST (17-59) U/L ALT (4-49) U/L Alkaline Phosphatase (38-126) U/L Urine Ketones 2+ H (Negative) CT scan - abdomen: report reviewed CT scan - pelvis: report reviewed Assessment and Plan (1) Colonic obstruction Current Visit: Yes Status: Acute Priority: High Code(s): K56.609 - UNSP INTESTNL OBST, UNSP TO PARTIAL VERSUS COMPLETE OBST SNOMED Code(s): 92031911 (2) Rectal cancer Current Visit: Yes Status: Acute Priority: High Code(s): C20 - MALIGNANT NEOPLASM OF RECTUM SNOMED Code(s): 739632491 Plan: Metastatic rectal adenocarcinoma: -History of invasive moderately differentiated rectal adenocarcinoma. Due to disease progression patient has been on multiple treatment regimens. He had palliative XRT to rectal lesion in August/2022 -He was started on regorafenib in December/2022, but PET scan on 03/23/2023 revealed evidence of disease progression. Regorafenib was then stopped. Plan is for patient to start oxaliplatin and xeloda, but has not yet begun new treatment. -Rad/onc consulted for evaluation -Will follow up outpatient once recovered from acute condition prior to starting new treatment regimen. Colonic obstruction: - CT abdomen and pelvis revealed suspected distal colonic obstruction at the level of the upper rectum secondary to annular soft tissue thickening and narrowing, likely from patient's underlying rectal cancer, with disease progression noted. -Surgery has been consulted for surgical evaluation of colonic obstruction. If surgery is not deemed necessary pt may need evaluation by interventional GI for stent placement -Defer management to surgical team attests: I have performed H&P and developed impression and plan of care for patient, discussed with dictator. I agree with dictated note, documented as a scribe
[2023-04-11] MEDS: HYDROmorphone 1 MG/ML 1 ML SYRINGE IVP PRN (18:23)
[2023-04-11] MEDS: FAMOTIDINE 20 MG/2 ML VIAL IV SCH (21:06)
[2023-04-11] MEDS: HEPARIN SODIUM,PORCINE/PF 5,000 UNIT/0.5 ML SYRINGE SQ SCH (21:07)
[2023-04-12] MEDS: HYDROmorphone 1 MG/ML 1 ML SYRINGE IVP PRN ×3 (02:16→11:09)
[2023-04-12] MEDS: SODIUM CHLORIDE 0.9% 1,000 ML IV SCH ×4 (07:37→16:22)
[2023-04-12 08:04] LABS: INR 1.2 (<1.2); Prothrombin Time 12.1 sec (9.0-12.0)
[2023-04-12 08:45] LABS: Basophils # (A) 0.02 X 10*3/uL (0.00-0.10); Basophils % (A) 0.4 %; Eosinophils # (A) 0.03 X 10*3/uL (0.04-0.35); Eosinophils % (A) 0.6 %; HCT 34.6 % (39.6-50.0); HGB 11.1 g/dL (13.0-17.0); Immature Grans, Automated 0.2 %; Lymphocytes # (A) 0.59 X 10*3/uL (0.90-5.00); Lymphocytes % (A) 11.8 %; MCH 28.2 pg (27.0-32.0); MCHC 32.1 g/dL (32.0-37.0); MCV 87.8 fL (80.0-97.0); Mean Platelet Volume 9.3 fL (9.5-12.2); Monocytes # (A) 0.81 X 10*3/uL (0.20-1.00); Monocytes % (A) 16.1 %; NRBC Per 100 WBC 0 /100 WBCS (0.0-0.0); Neutrophils # (A) 3.56 X 10*3/uL (1.80-7.70); Neutrophils % (A) 70.9 %; Platelet Count 189 X 10*3/uL (140-440); RBC 3.94 X 10*6/uL (4.40-5.60); RDW 16.3 % (11.5-14.5); WBC 5.02 X 10*3/uL (4.50-10.00)
[2023-04-12 08:51] LABS: Albumin 3.5 g/dL (3.8-4.9); Albumin/Globulin Ratio 1.46 (1.60-3.17); Anion Gap 15.7 mmol/L (10.00-18.00); Bilirubin, Conjugated 0.3 mg/dL (0.20-0.40); Bilirubin,Unconjugated 0.2 mg/dL (0.20-1.00); Blood Urea Nitrogen 10.5 mg/dL (9.0-27.0); Calcium 9.1 mg/dL (8.7-10.3); Carbon Dioxide 22.3 mmol/L (20.0-27.5); Globulin 2.4 g/dL (1.6-3.3); Potassium 4.4 mmol/L (3.5-5.5); Total Bilirubin 0.5 mg/dL (0.30-1.20); Total Protein 5.9 g/dL (6.2-8.2)
[2023-04-12] MEDS: HEPARIN SODIUM,PORCINE/PF 5,000 UNIT/0.5 ML SYRINGE SQ SCH ×2 (09:57→21:47)
[2023-04-12] MEDS: FAMOTIDINE 20 MG/2 ML VIAL IV SCH ×2 (10:40→21:46)
--- NOTE | 2023-04-12 12:09 | P.PN ---
Subjective This is a pleasant 52 years old male with past medical history of hypertension Presents because of abdominal pain and nausea vomiting with no bowel movement for the last 5-6 days. Patient says that is been having constipation, for the last 7 days he did not have bowel movement, yesterday he took extra dose of laxative and at night he had more severe abdominal pain, his pain mainly in the lower abdomen, nonradiating, nonspecific or colicky in nature. Associated with vomiting several times this morning, no blood in it. Patient denies chest pain or dyspnea. No urinary complaints, no neurological complaints lightheaded dizziness weakness or numbness. Patient is a nonsmoker, he is not actively drinking alcohol currently. He has been diagnosed with rectal cancer about 3 years ago now is following up with Dr. Main, he received several chemotherapy and now in the process to switch to another Regimen as per at bedside. He got radiotherapy that his rectal area last year when he has similar presentation and that helped him then Vitals stable Unremarkable CBC, BMP. Lactic acid elevated at 3.9 Liver enzymes elevated AST 113, ALT 100, normal bilirubin. Lipase normal 102. urine analysis is not suspicious for infection. CT of the abdomen and pelvis with contrast: Left basilar pulmonary nodule increased 0.8 cm up to 1.1 cm. Multiple cannonball metastasis to the liver larger 7.6 cm in the right hepatic dome compared to 7.3 cm previously Enlarged portacaval lymph node 4.82.3 cm, slightly larger from before. A few extra peritoneal nodes largest at 2.0 cm, there is moderate to large stool burden especially along the distal aspect of the colon , secondary to soft tissue thickening and narrowing of the level of the rectum. Also has lytic lesion to S2 spinous process Patient currently has normal saline running at 1 30 mL/h, has Dilaudid started, patient is nothing by mouth with surgery and hematology/oncology service consults 04/12/2023 Patient looks more comfortable today, he states that he has what 20 small bowel movement, his abdomen pain is slightly better down to C6-7/10 in severity. He denies any other new complaint He is hemodynamically stable. He remains on normal saline with 30 mL/h and pain medication which looks controlled. Patient is telling me that surgical team are going to operate on him today Objective - Vital Signs Vital signs: Vital Signs Temp 98.0 F 04/12/23 08:00 Pulse 84 04/12/23 08:00 Resp 17 04/12/23 08:00 BP 144/102 04/12/23 08:00 Pulse Ox 98 04/12/23 08:00 FiO2 Intake & Output 04/11/23 04/12/23 04/12/23 18:59 06:59 18:59 Weight 79.379 kg - Exam GENERAL: The patient is alert and oriented x3, not in any acute distress. Well developed, well nourished. HEENT: Pupils are round and equally reacting to light. EOMI. No scleral icterus. No conjunctival pallor. Normocephalic, atraumatic. No pharyngeal erythema. No thyromegaly. CARDIOVASCULAR: S1 and S2 present. No murmurs, rubs, or gallops. PULMONARY: Chest is clear to auscultation, no wheezing or crackles. ABDOMEN: Soft, RLQ tenderness with no rebound tenderness, mild guarding, nondistended, normoactive bowel sounds. No palpable organomegaly. MUSCULOSKELETAL: No joint swelling or deformity. EXTREMITIES: No cyanosis, clubbing, or pedal edema. NEUROLOGICAL: Gross neurological examination did not reveal any focal deficits. SKIN: No rashes. no petechiae. - Labs CBC & Chem 7: 04/12/23 06:12 04/12/23 06:12 Labs: Abnormal Lab Results - Last 24 Hours (Table) 04/12/23 04/12/23 04/12/23 Range/Units 06:12 06:12 07:46 RBC 3.94 L (4.40-5.60) X 10*6/uL Hgb 11.1 L (13.0-17.0) g/dL Hct 34.6 L (39.6-50.0) % RDW 16.3 H (11.5-14.5) % MPV 9.3 L (9.5-12.2) fL Lymphocytes # 0.59 L (0.90-5.00) X 10*3/uL Eosinophils # 0.03 L (0.04-0.35) X 10*3/uL PT 12.1 H (9.0-12.0) sec INR 1.2 H (<1.2) AST 89 H (14-35) U/L ALT 74 H (10-49) U/L Alkaline Phosphatase 197 H (41-126) U/L Total Protein 5.9 L (6.2-8.2) g/dL Albumin 3.5 L (3.8-4.9) g/dL Albumin/Globulin Ratio 1.46 L (1.60-3.17) g/dL Assessment and Plan Assessment: -distal colon Obstruction with moderate to large stool burden, secondary to rectal stricture -recently diagnosed rectal cancer, since May 2020 and multiple liver metastasis, retroperitoneal lymphadenopathy metastasis, spine metastasis to S2 spinous process and possible pulmonary nodule -Left basilar pulmonary nodule increased 0.8 cm up to 1.1 cm, mostly secondary to metastatic disease -ild transaminitis -Elevated lactic acid on admission -Hypertension Plan: Bowel rest IV fluids Pain medication Surgery consult will defer decision about need for surgery to their team Hematology/oncology consult Labs and medication were reviewed.. Continue same treatment. Continue with symptomatic treatment. Resume home medication. Monitor labs and vitals. DVT and GI prophylaxis. Further recommendations as per clinical course of the patient DVT prophylaxis: Subcutaneous heparin GI Prophylaxis: Pepcid Prognosis is guarded
[2023-04-12] MEDS ORDERED: IV FLUID CONTINUATION 1,000 ML IV ONE ×2 (12:47)
[2023-04-12] MEDS ORDERED: MIDAZOLAM 2 MG/2 ML VIAL IVP ONE (12:50)
[2023-04-12] MEDS ORDERED: fentaNYL (PF) 50 MCG/ML 2 ML AMP IVP ONE (12:50)
[2023-04-12] MEDS ORDERED: metroNIDAZOLE-NS PMX 500 MG in SALINE 1 100ML.BAG IVPB STA (13:06)
[2023-04-12] MEDS ORDERED: ONDANSETRON 4 MG/2 ML VIAL IVP ONE (13:06)
[2023-04-12] MEDS ORDERED: HEPARIN SODIUM,PORCINE 5,000 UNIT/ML 1 ML VIAL SQ ONE (13:12)
[2023-04-12] MEDS ORDERED: NEOSTIGMINE 1 MG/ML 10 ML VIAL ONE (13:15)
[2023-04-12] MEDS ORDERED: KETAMINE 10 MG/ML 20 ML VIAL ONE (13:15)
[2023-04-12] MEDS ORDERED: ROCURONIUM 10 MG/ML (5 ML VIAL) IV ONE (13:15)
[2023-04-12] MEDS ORDERED: PROPOFOL 10 MG/ML 20 ML VIAL IV ONE (13:15)
[2023-04-12] MEDS ORDERED: ROPIVACAINE 5 MG/ML 30 ML VIAL ONE (13:15)
[2023-04-12] MEDS ORDERED: SODIUM CHLORIDE 0.9% (PF) 10 ML VIAL ONE (13:15)
[2023-04-12] MEDS ORDERED: SUCCINYLCHOLINE CHLORIDE 200 MG/10 ML VIAL IV ONE (13:15)
[2023-04-12] MEDS ORDERED: MIDAZOLAM 2 MG/2 ML VIAL ONE (13:15)
[2023-04-12] MEDS ORDERED: fentaNYL (PF) 50 MCG/ML 2 ML AMP ONE (13:15)
[2023-04-12] MEDS ORDERED: HYDROmorphone (PF) 1 MG/ML ONE (13:15)
[2023-04-12] MEDS ORDERED: LIDOCAINE 2% INJ 20 MG/ML (2 ML VIAL) ONE (13:15)
[2023-04-12] MEDS ORDERED: GLYCOPYRROLATE 0.2 MG/ML 2 ML VIAL ONE (13:15)
--- NOTE | 2023-04-12 14:06 | P.PN ---
Progress Note - Text Progress Note Date: 04/12/[address] Garcia, who reviewed imaging. He stated patient could receive further XRT if he was not a surgical candidate, however, also spoke with Dr. Zuñiga, and he plans for diverting colostomy today. Will cancel rad/onc consult at this time.
--- NOTE | 2023-04-12 14:14 | P.ANPRN ---
Procedure Note - Anesthesia - Nerve Block Performed Bilateral Rectus Abdominis Single Time Out Performed: Yes ([id number]) Date of Procedure: 04/12/23 Procedure Start Time: 12:50 Procedure Stop Time: 12:56 Location of Patient: PreOp Indication: Acute Post-Operative Pain, Requested by Surgeon Specifically requested for management of pain by DrMatt: Christiano Zuñiga Sedation Type: Sedate with meaningful contact maintained Preparation: Sterile Prep Position: Supine Catheter: None Needle Types: Pajunk Needle Gauge: 21 Ultrasound used to visualize needle placement: Yes Ultrasound used to observe medication spread: Yes Injectate: 0.5% Ropivacaine (see comment for volume) (20cc + 10cc nacl pf) Blood Aspirated: No Pain Paresthesia on Injection Noted: No Resistance on Injection: Normal Image Stored and Saved: Yes Events: Uneventful and Well Tolerated
[2023-04-12] MEDS ORDERED: LACTATED RINGERS 1,000 ML IV ONE (14:47)
[2023-04-12] MEDS ORDERED: ACETAMINOPHEN TAB 325 MG TAB PO PRN (14:51)
--- NOTE | 2023-04-12 14:57 | P.OP ---
Date of Procedure: 04/12/23 Procedure(s) Performed: PREOPERATIVE DIAGNOSIS: Colonic obstruction POSTOPERATIVE DIAGNOSIS: Same PROCEDURE: Diverting loop colostomy SURGEON: Zara EBL: 25 mL ANESTHESIA: Gen. COMPLICATIONS: None OPERATIVE PROCEDURE: Patient placed in the supine position. The patient was placed under general anesthesia. The abdomen was then prepped and draped sterilely. A small supra umbilical vertical incision was then made. The transverse colon and sigmoid colon were inspected. The sigmoid colon appeared to be most mobile. The incision was lengthened inferiorly. Fascia was divided using electrocautery. A small amount of free fluid in the abdomen was evacuated. There was peritoneal implants in the cul-de-sac. The sigmoid colon was fully mobilized. Once we had enough length a Winn drain was placed through the mesentery in order to manipulate the bowel. A circular incision was made in the left lower abdomen. Entrance into the perineal cavity occurred. Sigmoid colon loop was brought up through this opening. The abdomen was irrigated with saline. No bleeding was seen. The midline fascia was then reapproximated using 2 separate double-stranded #1 PDS sutures. Subcutaneous tissues were closed using 3-0 Vicryl sutures. Skin closed using fifi. Sterile dressing applied. Ostomy was then matured in a stillaguamish fashion using 3- 0 Vicryl sutures. The initial Winn drain was switched to a 20-Polish red rubber catheter to be used as a bridge. This was sutured to the skin using 2 separate 2-0 silk sutures. Ostomy appliance was applied. DISPOSITION: Stable to recovery room
[2023-04-12] MEDS: HYDROmorphone 0.5 MG/0.5 ML SYRINGE IVP ONE ×2 (15:14→15:25)
[2023-04-12] MEDS: HYDROmorphone PCA 10 MG/50 ML BAG IV PRN (16:38)
[2023-04-12] MEDS: ONDANSETRON 4 MG/2 ML VIAL IVP PRN (21:42)
[2023-04-13] MEDS: HYDROmorphone PCA 10 MG/50 ML BAG IV PRN (02:44)
[2023-04-13] MEDS: SODIUM CHLORIDE 0.9% 1,000 ML IV SCH ×4 (03:45→21:29)
[2023-04-13] MEDS: ONDANSETRON 4 MG/2 ML VIAL IVP PRN ×2 (05:00→10:48)
[2023-04-13 08:57] LABS: Basophils # (A) 0.01 X 10*3/uL (0.00-0.10); Basophils % (A) 0.2 %; Eosinophils # (A) 0.01 X 10*3/uL (0.04-0.35); Eosinophils % (A) 0.2 %; HCT 34.1 % (39.6-50.0); HGB 10.7 g/dL (13.0-17.0); Immature Grans, Automated 0.4 %; Lymphocytes # (A) 0.62 X 10*3/uL (0.90-5.00); Lymphocytes % (A) 11.4 %; MCH 27.5 pg (27.0-32.0); MCHC 31.4 g/dL (32.0-37.0); MCV 87.7 fL (80.0-97.0); Mean Platelet Volume 9.2 fL (9.5-12.2); NRBC Per 100 WBC 0 /100 WBCS (0.0-0.0); Neutrophils # (A) 4.18 X 10*3/uL (1.80-7.70); Neutrophils % (A) 76.8 %; Platelet Count 195 X 10*3/uL (140-440); RBC 3.89 X 10*6/uL (4.40-5.60); RDW 16.2 % (11.5-14.5); WBC 5.44 X 10*3/uL (4.50-10.00)
[2023-04-13 09:20] LABS: African American GFR (CKD) 130.8 (60.0-200.0); Albumin 3.1 g/dL (3.8-4.9); Albumin/Globulin Ratio 1.38 (1.60-3.17); Anion Gap 12.5 mmol/L (10.00-18.00); BUN/Creat Ratio 10.47 Ratio (12.00-20.00); Bilirubin, Conjugated 0.44 mg/dL (0.20-0.40); Bilirubin,Unconjugated 0.19 mg/dL (0.20-1.00); Blood Urea Nitrogen 6.4 mg/dL (9.0-27.0); Calcium 8.5 mg/dL (8.7-10.3); Carbon Dioxide 21.7 mmol/L (20.0-27.5); Globulin 2.3 g/dL (1.6-3.3); Non-African American GFR(CKD) 112.8 (60.0-200.0); Potassium 4.1 mmol/L (3.5-5.5); Total Bilirubin 0.6 mg/dL (0.30-1.20); Total Protein 5.4 g/dL (6.2-8.2)
[2023-04-13] MEDS: HEPARIN SODIUM,PORCINE/PF 5,000 UNIT/0.5 ML SYRINGE SQ SCH ×2 (09:21→21:24)
[2023-04-13] MEDS: FAMOTIDINE 20 MG/2 ML VIAL IV SCH ×2 (09:21→21:24)
[2023-04-13] MEDS ORDERED: METOCLOPRAMIDE 5 MG/ML 2 ML VIAL IVP PRN (10:22)
[2023-04-13] MEDS ORDERED: ACETAMINOPHEN IV (For NPO) 1,000 MG in EMPTY BAG 1 BAG IVPB SCH (11:00)
[2023-04-13] MEDS: KETOROLAC 15 MG/ML 1 ML VIAL IVP SCH ×2 (11:10→17:46)
[2023-04-13] MEDS: SCOPOLAMINE 1 MG/72 HR PATCH TRANSDERM SCH (11:11)
--- NOTE | 2023-04-13 12:27 | P.PN ---
Subjective Progress Note Date: 04/13/23 CHIEF COMPLAINT: Colonic obstruction HISTORY OF PRESENT ILLNESS: Patient is postop day #1 status post diverting loop colostomy. Patient complaining of nausea and dry heaves. Also reporting abdominal pain. He reports that the MANAGER TRANSPLANT pump pain medication is making him more nauseous. He rates pain a 6 out of 10. Afebrile. Mild tachycardia improved. Mildly elevated blood pressure. WBC is 5.4 for Hgb 10.7 platelets 195. Sodium is 134 potassium 4.1 creatinine 0.6 PHYSICAL EXAM: VITAL SIGNS: Reviewed. GENERAL: Well-developed in no acute distress. HEENT: No sclera icterus. Extraocular movements grossly intact. Moist buccal mucosa. Head is atraumatic, normocephalic. ABDOMEN: Soft. Nondistended. Incision dressing had some blood saturation on the edge. Incision clean dry and intact. Ostomy stoma is pink. Bag is empty NEUROLOGIC: Alert and oriented. Cranial nerves II through XII grossly intact. ASSESSMENT: 1. Colonic obstruction due to rectal cancer status post diverting colostomy PLAN: -Adjusting pain medication. Discontinue MANAGER TRANSPLANT pump. Add IV Tylenol and IV Toradol scheduled. He does have IV Dilaudid as needed for breakthrough pain -Change Zofran to every 6 hours PRN for nausea -Add Reglan PRN for nausea and add scopolamine patch -Educated patient to go slow with the liquid diet -Encourage patient to increase activity level -Encourage patient to use incentive spirometer -Continue IV fluids -GI prophylaxis Pepcid and DVT prophylaxis subcu heparin Physician Drum Reel Cutter note has been reviewed by physician. Signing provider agrees with the documented findings, assessment, and plan of care. I have personally seen and examined the patient, reviewed the DR[employer] SAF[employer] ASSOCIATE /PAs history, exam and MDM and agree with the assessment and plan as written. Based on total visit time, I have performed more than 50% of the visit. As above: Patient was having nausea overnight. Better today. Pain is well controlled currently. No ostomy function. Continue clear liquids. Continue antiemetics. Increase activity. Objective - Vital Signs Vital signs: Vital Signs Temp 98.8 F 04/13/23 07:36 Pulse 82 04/13/23 09:32 Resp 18 04/13/23 07:36 BP 164/97 04/13/23 09:32 Pulse Ox 95 04/13/23 07:36 FiO2 Intake & Output 04/12/23 04/13/23 04/13/23 18:59 06:59 18:59 Intake Total 2090 590 Output Total 670 1000 Balance 1420 -410 Weight 79.379 kg Intake: IV 1050 Intake, IV Titration 1040 Amount Sodium Chloride 0.9% 1, 1040 000 ml @ 130 mls/hr IV . Q7H42M [facility] Rx#:[id number] Oral 590 Output: Urine 650 1000 Estimated Blood Loss 20 Other: Voiding Method Indwelling Catheter # Voids 1 - Labs CBC & Chem 7: 04/13/23 05:12 04/13/23 05:12 Labs: Abnormal Lab Results - Last 24 Hours (Table) 04/13/23 04/13/23 Range/Units 05:12 05:12 RBC 3.89 L (4.40-5.60) X 10*6/uL Hgb 10.7 L (13.0-17.0) g/dL Hct 34.1 L (39.6-50.0) % MCHC 31.4 L (32.0-37.0) g/dL RDW 16.2 H (11.5-14.5) % MPV 9.2 L (9.5-12.2) fL Lymphocytes # 0.62 L (0.90-5.00) X 10*3/uL Eosinophils # 0.01 L (0.04-0.35) X 10*3/uL Sodium 134 L (135-145) mmol/L BUN 6.4 L (9.0-27.0) mg/dL BUN/Creatinine Ratio 10.47 L (12.00-20.00) Ratio Calcium 8.5 L (8.7-10.3) mg/dL Conjugated Bilirubin 0.44 H (0.20-0.40) mg/dL Unconjugated Bilirubin 0.19 L (0.20-1.00) mg/dL AST 78 H (14-35) U/L ALT 56 H (10-49) U/L Alkaline Phosphatase 167 H (41-126) U/L Total Protein 5.4 L (6.2-8.2) g/dL Albumin 3.1 L (3.8-4.9) g/dL Albumin/Globulin Ratio 1.38 L (1.60-3.17) g/dL
[2023-04-13] MEDS: HYDROcodone/APAP 5-325MG 1 EACH TAB PO PRN (13:23)
[2023-04-13] MEDS: lisinopriL 20 MG TAB PO SCH (14:24)
--- NOTE | 2023-04-13 17:05 | P.PN ---
Subjective Progress Note Date: 04/13/23 Principal diagnosis: hx rectal cancer At today's visit patient is sitting in bedside chair. S/p diverting colostomy on 04/12/[address] Zuñiga. Patient just transferred from the bed to chair, so is complaining of significant abdominal pain. Denies n/v. Denies fever and chills. Objective - Vital Signs Vital signs: Vital Signs Temp 98.5 F 04/13/23 13:04 Pulse 87 04/13/23 13:04 Resp 18 04/13/23 13:04 BP 165/104 04/13/23 14:07 Pulse Ox 97 04/13/23 13:04 FiO2 Intake & Output 04/12/23 04/13/23 04/13/23 18:59 06:59 18:59 Intake Total 2090 590 Output Total 670 1000 450 Balance 1420 -410 -450 Weight 79.379 kg Intake: IV 1050 Intake, IV Titration 1040 Amount Sodium Chloride 0.9% 1, 1040 000 ml @ 130 mls/hr IV . Q7H42M [facility] Rx#:[id number] Oral 590 Output: Urine 650 1000 450 Uretheral (Vinson) 225 Estimated Blood Loss 20 Other: Voiding Method Indwelling Catheter Indwelling Catheter # Voids 1 - Constitutional General appearance: Present: average body habitus, no acute distress - EENT Eyes: Present: anicteric sclerae, EOMI ENT: Present: hearing grossly normal - Respiratory Details: breathing even and unlabored - Cardiovascular Details: skin warm and dry - Gastrointestinal Gastrointestinal Comment(s): colostomy present - Integumentary Integumentary: Absent: cyanotic, rash - Neurologic Neurologic: Present: CNII-XII intact - Psychiatric Psychiatric: Present: A&O x's 3, appropriate affect, intact judgment & insight - Labs CBC & Chem 7: 04/13/23 05:12 04/13/23 05:12 Labs: Abnormal Lab Results - Last 24 Hours (Table) 04/13/23 04/13/23 Range/Units 05:12 05:12 RBC 3.89 L (4.40-5.60) X 10*6/uL Hgb 10.7 L (13.0-17.0) g/dL Hct 34.1 L (39.6-50.0) % MCHC 31.4 L (32.0-37.0) g/dL RDW 16.2 H (11.5-14.5) % MPV 9.2 L (9.5-12.2) fL Lymphocytes # 0.62 L (0.90-5.00) X 10*3/uL Eosinophils # 0.01 L (0.04-0.35) X 10*3/uL Sodium 134 L (135-145) mmol/L BUN 6.4 L (9.0-27.0) mg/dL BUN/Creatinine Ratio 10.47 L (12.00-20.00) Ratio Calcium 8.5 L (8.7-10.3) mg/dL Conjugated Bilirubin 0.44 H (0.20-0.40) mg/dL Unconjugated Bilirubin 0.19 L (0.20-1.00) mg/dL AST 78 H (14-35) U/L ALT 56 H (10-49) U/L Alkaline Phosphatase 167 H (41-126) U/L Total Protein 5.4 L (6.2-8.2) g/dL Albumin 3.1 L (3.8-4.9) g/dL Albumin/Globulin Ratio 1.38 L (1.60-3.17) g/dL Assessment and Plan (1) Colonic obstruction Current Visit: Yes Status: Acute Priority: High Code(s): K56.609 - UNSP INTESTNL OBST, UNSP TO PARTIAL VERSUS COMPLETE OBST SNOMED Code(s): 52503824 (2) Rectal cancer Current Visit: Yes Status: Acute Priority: High Code(s): C20 - MALIGNANT NEOPLASM OF RECTUM SNOMED Code(s): 094808491 Plan: Metastatic rectal adenocarcinoma: -History of invasive moderately differentiated rectal adenocarcinoma. Due to disease progression patient has been on multiple treatment regimens. He had palliative XRT to rectal lesion in August/2022 -He was started on regorafenib in December/2022, but PET scan on 03/23/2023 revealed evidence of disease progression. Regorafenib was stopped at f/u visit on 04/02/23. Plan is for patient to start oxaliplatin and xeloda, but he has not yet begun new treatment, as he is waiting for Xeloda. Per speciality pharmacy medication will be delivered on 04/16. -Following with Dr. Pereira for RT of right rib lesion -Will hold treatment for minimum of 4 weeks s/p abdominal surgery. Will follow up outpatient in 3-4 weeks once recovered from surgery and will plan to begin new treatment regimen once cleared by surgery Colonic obstruction: - CT abdomen and pelvis revealed suspected distal colonic obstruction at the level of the upper rectum secondary to annular soft tissue thickening and narrowing, likely from patient's underlying rectal cancer, with disease progre ssion noted. -Surgery consulted. Diverting colostomy performed on 04/[address] Zuñiga.
[2023-04-13 20:41] LABS: Glucose,Whole Blood 88 mg/dL (70-110)
[2023-04-13] MEDS: HYDROmorphone 0.5 MG/0.5 ML SYRINGE IVP PRN (21:36)
--- NOTE | 2023-04-13 22:08 | P.PN ---
Subjective This is a pleasant 52 years old male with past medical history of hypertension Presents because of abdominal pain and nausea vomiting with no bowel movement for the last 5-6 days. Patient says that is been having constipation, for the last 7 days he did not have bowel movement, yesterday he took extra dose of laxative and at night he had more severe abdominal pain, his pain mainly in the lower abdomen, nonradiating, nonspecific or colicky in nature. Associated with vomiting several times this morning, no blood in it. Patient denies chest pain or dyspnea. No urinary complaints, no neurological complaints lightheaded dizziness weakness or numbness. Patient is a nonsmoker, he is not actively drinking alcohol currently. He has been diagnosed with rectal cancer about 3 years ago now is following up with Dr. Main, he received several chemotherapy and now in the process to switch to another Regimen as per at bedside. He got radiotherapy that his rectal area last year when he has similar presentation and that helped him then Vitals stable Unremarkable CBC, BMP. Lactic acid elevated at 3.9 Liver enzymes elevated AST 113, ALT 100, normal bilirubin. Lipase normal 102. urine analysis is not suspicious for infection. CT of the abdomen and pelvis with contrast: Left basilar pulmonary nodule increased 0.8 cm up to 1.1 cm. Multiple cannonball metastasis to the liver larger 7.6 cm in the right hepatic dome compared to 7.3 cm previously Enlarged portacaval lymph node 4.82.3 cm, slightly larger from before. A few extra peritoneal nodes largest at 2.0 cm, there is moderate to large stool burden especially along the distal aspect of the colon , secondary to soft tissue thickening and narrowing of the level of the rectum. Also has lytic lesion to S2 spinous process Patient currently has normal saline running at 1 30 mL/h, has Dilaudid started, patient is nothing by mouth with surgery and hematology/oncology service consults 04/12/2023 Patient looks more comfortable today, he states that he has what 20 small bowel movement, his abdomen pain is slightly better down to C6-7/10 in severity. He denies any other new complaint He is hemodynamically stable. He remains on normal saline with 30 mL/h and pain medication which looks controlled. Patient is telling me that surgical team are going to operate on him today 04/13/2023 Patient is status post Diverting loop colostomy. Today is postop day #1. Postop pain and nausea vomiting didn't treat symptomatically per surgery team His blood pressure on the high side lisinopril 20 mg home dose was resumed Hematology/oncology team on the case Objective - Vital Signs Vital signs: Vital Signs Temp 98.5 F 04/13/23 13:04 Pulse 87 04/13/23 13:04 Resp 18 04/13/23 13:04 BP 165/104 04/13/23 14:07 Pulse Ox 97 04/13/23 13:04 FiO2 Intake & Output 04/12/23 04/13/23 04/13/23 18:59 06:59 18:59 Intake Total 2090 590 Output Total 670 1000 450 Balance 1420 -410 -450 Weight 79.379 kg Intake: IV 1050 Intake, IV Titration 1040 Amount Sodium Chloride 0.9% 1, 1040 000 ml @ 130 mls/hr IV . Q7H42M [facility] Rx#:[id number] Oral 590 Output: Urine 650 1000 450 Uretheral (Vinson) 225 Estimated Blood Loss 20 Other: Voiding Method Indwelling Catheter Indwelling Catheter # Voids 1 - Exam GENERAL: The patient is alert and oriented x3, not in any acute distress. Well developed, well nourished. HEENT: Pupils are round and equally reacting to light. EOMI. No scleral icterus. No conjunctival pallor. Normocephalic, atraumatic. No pharyngeal erythema. No thyromegaly. CARDIOVASCULAR: S1 and S2 present. No murmurs, rubs, or gallops. PULMONARY: Chest is clear to auscultation, no wheezing or crackles. ABDOMEN: Soft, RLQ tenderness with no rebound tenderness, mild guarding, nondistended, normoactive bowel sounds. No palpable organomegaly. MUSCULOSKELETAL: No joint swelling or deformity. EXTREMITIES: No cyanosis, clubbing, or pedal edema. NEUROLOGICAL: Gross neurological examination did not reveal any focal deficits. SKIN: No rashes. no petechiae. - Labs CBC & Chem 7: 04/13/23 05:12 04/13/23 05:12 Labs: Abnormal Lab Results - Last 24 Hours (Table) 04/13/23 04/13/23 Range/Units 05:12 05:12 RBC 3.89 L (4.40-5.60) X 10*6/uL Hgb 10.7 L (13.0-17.0) g/dL Hct 34.1 L (39.6-50.0) % MCHC 31.4 L (32.0-37.0) g/dL RDW 16.2 H (11.5-14.5) % MPV 9.2 L (9.5-12.2) fL Lymphocytes # 0.62 L (0.90-5.00) X 10*3/uL Eosinophils # 0.01 L (0.04-0.35) X 10*3/uL Sodium 134 L (135-145) mmol/L BUN 6.4 L (9.0-27.0) mg/dL BUN/Creatinine Ratio 10.47 L (12.00-20.00) Ratio Calcium 8.5 L (8.7-10.3) mg/dL Conjugated Bilirubin 0.44 H (0.20-0.40) mg/dL Unconjugated Bilirubin 0.19 L (0.20-1.00) mg/dL AST 78 H (14-35) U/L ALT 56 H (10-49) U/L Alkaline Phosphatase 167 H (41-126) U/L Total Protein 5.4 L (6.2-8.2) g/dL Albumin 3.1 L (3.8-4.9) g/dL Albumin/Globulin Ratio 1.38 L (1.60-3.17) g/dL Assessment and Plan Assessment: -distal colon Obstruction with moderate to large stool burden, secondary to re ctal stricture. Status post Diverting loop colostomy -recently diagnosed rectal cancer, since May 2020 and multiple liver metastasis, retroperitoneal lymphadenopathy metastasis, spine metastasis to S2 spinous process and possible pulmonary nodule -Left basilar pulmonary nodule increased 0.8 cm up to 1.1 cm, mostly secondary to metastatic disease -ild transaminitis -Elevated lactic acid on admission -Hypertension Plan: Continue with postop care. Surgery team on the case resume his lisinopril 20 mg IV fluids, Lower rate to 100 mL/h as blood pressure is on the high side Pain medication Hematology/oncology consult Labs and medication were reviewed.. Continue same treatment. Continue with symptomatic treatment. Resume home medication. Monitor labs and vitals. DVT and GI prophylaxis. Further recommendations as per clinical course of the patient DVT prophylaxis: Subcutaneous heparin GI Prophylaxis: Pepcid Prognosis is guarded
[2023-04-14] MEDS: KETOROLAC 15 MG/ML 1 ML VIAL IVP SCH ×4 (01:00→18:32)
[2023-04-14] MEDS: ONDANSETRON 4 MG/2 ML VIAL IVP PRN (04:27)
[2023-04-14] MEDS: HYDROmorphone 0.5 MG/0.5 ML SYRINGE IVP PRN ×4 (04:27→22:15)
[2023-04-14 07:11] LABS: Glucose,Whole Blood 91 mg/dL (70-110)
[2023-04-14] MEDS: FAMOTIDINE 20 MG/2 ML VIAL IV SCH ×2 (08:35→20:47)
[2023-04-14] MEDS: SODIUM CHLORIDE 0.9% 1,000 ML IV SCH ×2 (08:35→18:32)
[2023-04-14] MEDS: lisinopriL 20 MG TAB PO SCH (08:36)
[2023-04-14] MEDS: HEPARIN SODIUM,PORCINE/PF 5,000 UNIT/0.5 ML SYRINGE SQ SCH ×2 (08:36→20:47)
[2023-04-14 11:54] LABS: Glucose,Whole Blood 85 mg/dL (70-110)
--- NOTE | 2023-04-14 14:33 | P.PN ---
Subjective Progress Note Date: 04/14/23 52 years old male with past medical history of hypertension Presents because of abdominal pain and nausea vomiting with no bowel movement for the last 5-6 days. Patient says that is been having constipation, for the last 7 days he did not have bowel movement, yesterday he took extra dose of laxative and at night he had more severe abdominal pain, his pain mainly in the lower abdomen, nonradiating, nonspecific or colicky in nature. Associated with vomiting several times this morning, no blood in it. Patient denies chest pain or dyspnea. No urinary complaints, no neurological complaints lightheaded dizziness weakness or numbness. Patient is a nonsmoker, he is not actively drinking alcohol currently. He has been diagnosed with rectal cancer about 3 years ago now is following up with Dr. Main, he received several chemotherapy and now in the process to switch to another Regimen as per at bedside. He got radiotherapy that his rectal area last year when he has similar presentation and that helped him then Vitals stable Unremarkable CBC, BMP. Lactic acid elevated at 3.9 Liver enzymes elevated AST 113, ALT 100, normal bilirubin. Lipase normal 102. urine analysis is not suspicious for infection. CT of the abdomen and pelvis with contrast: Left basilar pulmonary nodule increased 0.8 cm up to 1.1 cm. Multiple cannonball metastasis to the liver larger 7.6 cm in the right hepatic dome compared to 7.3 cm previously Enlarged portacaval lymph node 4.82.3 cm, slightly larger from before. A few extra peritoneal nodes largest at 2.0 cm, there is moderate to large stool burden especially along the distal aspect of the colon , secondary to soft tissue thickening and narrowing of the level of the rectum. Also has lytic lesion to S2 spinous process Patient currently has normal saline running at 1 30 mL/h, has Dilaudid started, patient is nothing by mouth with surgery and hematology/oncology service consults 04/12/2023 Patient looks more comfortable today, he states that he has what 20 small bowel movement, his abdomen pain is slightly better down to C6-7/10 in severity. He denies any other new complaint He is hemodynamically stable. He remains on normal saline with 30 mL/h and pain medication which looks controlled. Patient is telling me that surgical team are going to operate on him today 04/13/2023 Patient is status post Diverting loop colostomy. Today is postop day #1. Postop pain and nausea vomiting didn't treat symptomatically per surgery team His blood pressure on the high side lisinopril 20 mg home dose was resumed Hematology/oncology team on the case 04/14 Doing well, pain controlled , walked EXAM GENERAL: The patient is alert and oriented x3, not in any acute distress. Well developed, well nourished. HEENT: Pupils are round and equally reacting to light. EOMI. No scleral icterus. No conjunctival pallor. Normocephalic, atraumatic. No pharyngeal erythema. No thyromegaly. CARDIOVASCULAR: S1 and S2 present. No murmurs, rubs, or gallops. PULMONARY: Chest is clear to auscultation, no wheezing or crackles. ABDOMEN: Soft, RLQ tenderness with no rebound tenderness, mild guarding, nondistended, normoactive bowel sounds. No palpable organomegaly. MUSCULOSKELETAL: No joint swelling or deformity. EXTREMITIES: No cyanosis, clubbing, or pedal edema. NEUROLOGICAL: Gross neurological examination did not reveal any focal deficits. SKIN: No rashes. no petechiae. Assessment: * distal colon Obstruction with moderate to large stool burden, secondary to rectal stricture. Status post Diverting loop colostomy * recently diagnosed rectal cancer, since May 2020 and multiple liver metastasis, retroperitoneal lymphadenopathy metastasis, spine metastasis to S2 spinous process and possible pulmonary nodule * Left basilar pulmonary nodule increased 0.8 cm up to 1.1 cm, mostly secondary to metastatic disease * transaminitis * Elevated lactic acid on admission * Hypertension Plan: * Continue with postop care. Surgery team on the case * IV fluids * Pain medication * Hematology/oncology consult * Labs and medication were reviewed.. * DVT prophylaxis: Subcutaneous heparin * GI Prophylaxis: Pepcid Objective - Vital Signs Vital signs: Vital Signs Temp 97.6 F 04/14/23 12:35 Pulse 77 04/14/23 12:35 Resp 18 04/14/23 12:35 BP 159/91 04/14/23 12:35 Pulse Ox 98 04/14/23 12:35 FiO2 Intake & Output 04/13/23 04/14/23 04/14/23 18:59 06:59 18:59 Intake Total 300 Output Total 2259 900 600 Balance -2259 -600 -600 Intake: Oral 300 Output: Urine 1330 900 600 Straight 850 900 600 Uretheral (Vinson) 225 Post Void Residual 929 Other: Voiding Method Indwelling Catheter Indwelling Catheter - Labs CBC & Chem 7: 04/13/23 05:12 04/13/23 05:12
--- NOTE | 2023-04-14 16:07 | P.PN ---
Subjective Progress Note Date: 04/14/23 He reports hunger. No nausea today. He is concerned for his expectation for pain, "I felt so sore getting up yesterday." I encouraged him that it is normal to feel pain after his surgery. Overall, he is tolerating clear liquid diet. Incision intact. He is ambulating. May advance diet from full liquids to low fiber pending clinical course. Objective - Vital Signs Vital signs: Vital Signs Temp 97.6 F 04/14/23 12:35 Pulse 77 04/14/23 12:35 Resp 18 04/14/23 12:35 BP 159/91 04/14/23 12:35 Pulse Ox 93 L 04/14/23 14:00 FiO2 Intake & Output 04/13/23 04/14/23 04/14/23 18:59 06:59 18:59 Intake Total 300 Output Total 2259 900 600 Balance -2259 -600 -600 Intake: Oral 300 Output: Urine 1330 900 600 Straight 850 900 600 Uretheral (Vinson) 225 Post Void Residual 929 Other: Voiding Method Indwelling Catheter Indwelling Catheter - Labs CBC & Chem 7: 04/13/23 05:12 04/13/23 05:12
[2023-04-14 17:18] LABS: Glucose,Whole Blood 106 mg/dL (70-110)
[2023-04-14 20:51] LABS: Glucose,Whole Blood 82 mg/dL (70-110)
[2023-04-15] MEDS: KETOROLAC 15 MG/ML 1 ML VIAL IVP SCH ×5 (01:29→23:23)
[2023-04-15] MEDS: HYDROmorphone 0.5 MG/0.5 ML SYRINGE IVP PRN (04:54)
[2023-04-15] MEDS: SODIUM CHLORIDE 0.9% 1,000 ML IV SCH ×2 (05:13→17:18)
[2023-04-15 07:33] LABS: Anisocytosis Slight; Hypochromasia Slight; MCH 28.6 pg (25.0-35.0); MCHC 32.5 g/dL (31.0-37.0); MCV 87.8 fL (80.0-100.0); Mean Platelet Volume 7.7; Platelet Count 244 k/uL (150-450); RBC 3.41 m/uL (4.30-5.90); RDW 16.2 % (11.5-15.5); WBC 3.6 k/uL (3.8-10.6)
[2023-04-15 07:49] LABS: Glucose,Whole Blood 93 mg/dL (70-110)
[2023-04-15 07:59] LABS: HGB 9.7 gm/dL (13.0-17.5)
[2023-04-15 08:16] LABS: African American GFR (CKD) >90 (>60 ml/min/1.73 sqM); Anion Gap 8 mmol/L; Blood Urea Nitrogen 6 mg/dL (9-20); Calcium 7.9 mg/dL (8.4-10.2); Carbon Dioxide 22 mmol/L (22-30); Chloride 103 mmol/L (98-107); Glucose 83 mg/dL (74-99); Magnesium 1.9 mg/dL (1.6-2.3); Non-African American GFR(CKD) >90 (>60 ml/min/1.73 sqM); Potassium 3.7 mmol/L (3.5-5.1); Sodium 133 mmol/L (137-145)
[2023-04-15] MEDS: HEPARIN SODIUM,PORCINE/PF 5,000 UNIT/0.5 ML SYRINGE SQ SCH ×2 (10:18→21:20)
[2023-04-15] MEDS: lisinopriL 20 MG TAB PO SCH (10:18)
[2023-04-15] MEDS: FAMOTIDINE 20 MG/2 ML VIAL IV SCH ×2 (10:56→21:20)
[2023-04-15] MEDS ORDERED: CALCIUM GLUCONATE IN NACL 1 GM in SALINE 1 100ML.BAG IVPB ONE (11:00)
[2023-04-15 11:09] LABS: Glucose,Whole Blood 96 mg/dL (70-110)
--- NOTE | 2023-04-15 13:05 | P.PN ---
Subjective Progress Note Date: 04/15/23 52 years old male with past medical history of hypertension Presents because of abdominal pain and nausea vomiting with no bowel movement for the last 5-6 days. Patient says that is been having constipation, for the last 7 days he did not have bowel movement, yesterday he took extra dose of laxative and at night he had more severe abdominal pain, his pain mainly in the lower abdomen, nonradiating, nonspecific or colicky in nature. Associated with vomiting several times this morning, no blood in it. Patient denies chest pain or dyspnea. No urinary complaints, no neurological complaints lightheaded dizziness weakness or numbness. Patient is a nonsmoker, he is not actively drinking alcohol currently. He has been diagnosed with rectal cancer about 3 years ago now is following up with Dr. Main, he received several chemotherapy and now in the process to switch to another Regimen as per at bedside. He got radiotherapy that his rectal area last year when he has similar presentation and that helped him then Vitals stable Unremarkable CBC, BMP. Lactic acid elevated at 3.9 Liver enzymes elevated AST 113, ALT 100, normal bilirubin. Lipase normal 102. urine analysis is not suspicious for infection. CT of the abdomen and pelvis with contrast: Left basilar pulmonary nodule increased 0.8 cm up to 1.1 cm. Multiple cannonball metastasis to the liver larger 7.6 cm in the right hepatic dome compared to 7.3 cm previously Enlarged portacaval lymph node 4.82.3 cm, slightly larger from before. A few extra peritoneal nodes largest at 2.0 cm, there is moderate to large stool burden especially along the distal aspect of the colon , secondary to soft tissue thickening and narrowing of the level of the rectum. Also has lytic lesion to S2 spinous process Patient currently has normal saline running at 1 30 mL/h, has Dilaudid started, patient is nothing by mouth with surgery and hematology/oncology service consults 04/12/2023 Patient looks more comfortable today, he states that he has what 20 small bowel movement, his abdomen pain is slightly better down to C6-7/10 in severity. He denies any other new complaint He is hemodynamically stable. He remains on normal saline with 30 mL/h and pain medication which looks controlled. Patient is telling me that surgical team are going to operate on him today 04/13/2023 Patient is status post Diverting loop colostomy. Today is postop day #1. Postop pain and nausea vomiting didn't treat symptomatically per surgery team His blood pressure on the high side lisinopril 20 mg home dose was resumed Hematology/oncology team on the case 04/14 Doing well, pain controlled , walked 04/17 Had Urinary retention overnight, villalobos placed, Diet advanced Flomax started , in good spirits Assessment: * Distal colon Obstruction with moderate to large stool burden, secondary to rectal stricture. Status post Diverting loop colostomy * recently diagnosed rectal cancer, since May 2020 and multiple liver metastasis, retroperitoneal lymphadenopathy metastasis, spine metastasis to S2 spinous process and possible pulmonary nodule * Left basilar pulmonary nodule increased 0.8 cm up to 1.1 cm, mostly secondary to metastatic disease * Transaminitis * Post Op Urinary retention * Elevated lactic acid on admission * Hypertension Plan: * Continue with postop care. Surgery team on the case , Diet advanced * IV fluids * Pain medication * Hematology/oncology consult * Started on Flomax, Villalobos in place, can do trial of void prior to DC * Labs and medication were reviewed.. * DVT prophylaxis: Subcutaneous heparin * GI Prophylaxis: Pepcid Objective - Vital Signs Vital signs: Vital Signs Temp 98.3 F 04/15/23 07:45 Pulse 59 L 04/15/23 07:45 Resp 17 04/15/23 07:45 BP 149/81 04/15/23 07:45 Pulse Ox 97 04/15/23 07:45 FiO2 Intake & Output 04/14/23 04/15/23 04/15/23 18:59 06:59 18:59 Intake Total 900 800 Output Total 1600 1000 Balance -700 -200 Intake: Intake, IV Titration 900 Amount Sodium Chloride 0.9% 1, 900 000 ml @ 100 mls/hr IV . Q10H [facility] Rx#:[id number] Oral 800 Output: Urine 1600 1000 Straight 600 Other: Voiding Method Indwelling Catheter Indwelling Catheter - Exam EXAM GENERAL: The patient is alert and oriented x3, not in any acute distress. Well developed, well nourished. villalobos in place HEENT: Pupils are round and equally reacting to light. EOMI. No scleral icterus. No conjunctival pallor. Normocephalic, atraumatic. No pharyngeal erythema. No thyromegaly. CARDIOVASCULAR: S1 and S2 present. No murmurs, rubs, or gallops. PULMONARY: Chest is clear to auscultation, no wheezing or crackles. ABDOMEN: Soft, nondistended, normoactive bowel sounds. No palpable organomegaly, ostomy in place , non tender MUSCULOSKELETAL: No joint swelling or deformity. EXTREMITIES: No cyanosis, clubbing, or pedal edema. NEUROLOGICAL: Gross neurological examination did not reveal any focal deficits. SKIN: No rashes. no petechiae. - Labs CBC & Chem 7: 04/15/23 06:33 04/15/23 06:33 Labs: Abnormal Lab Results - Last 24 Hours (Table) 04/15/23 04/15/23 Range/Units 06:33 06:33 WBC 3.6 L (3.8-10.6) k/uL RBC 3.41 L (4.30-5.90) m/uL Hgb 9.7 L D (13.0-17.5) gm/dL Hct 30.0 L (39.0-53.0) % RDW 16.2 H (11.5-15.5) % Sodium 133 L (137-145) mmol/L BUN 6 L (9-20) mg/dL Creatinine 0.49 L (0.66-1.25) mg/dL Calcium 7.9 L (8.4-10.2) mg/dL
--- NOTE | 2023-04-15 14:34 | P.PN ---
Subjective Progress Note Date: 04/15/23 Principal diagnosis: Patient tolerated diet. Family bedside. No increased abdominal pain. Advance diet as tolerated. Stable for discharge from medically stable. Objective - Vital Signs Vital signs: Vital Signs Temp 98.5 F 04/15/23 12:45 Pulse 59 L 04/15/23 12:45 Resp 16 04/15/23 12:45 BP 166/95 04/15/23 12:45 Pulse Ox 97 04/15/23 12:45 FiO2 Intake & Output 04/14/23 04/15/23 04/15/23 18:59 06:59 18:59 Intake Total 900 800 Output Total 1600 1000 Balance -700 -200 Intake: Intake, IV Titration 900 Amount Sodium Chloride 0.9% 1, 900 000 ml @ 100 mls/hr IV . Q10H [facility] Rx#:[id number] Oral 800 Output: Urine 1600 1000 Straight 600 Other: Voiding Method Indwelling Catheter Indwelling Catheter - Labs CBC & Chem 7: 04/15/23 06:33 04/15/23 06:33 Labs: Abnormal Lab Results - Last 24 Hours (Table) 04/15/23 04/15/23 Range/Units 06:33 06:33 WBC 3.6 L (3.8-10.6) k/uL RBC 3.41 L (4.30-5.90) m/uL Hgb 9.7 L D (13.0-17.5) gm/dL Hct 30.0 L (39.0-53.0) % RDW 16.2 H (11.5-15.5) % Sodium 133 L (137-145) mmol/L BUN 6 L (9-20) mg/dL Creatinine 0.49 L (0.66-1.25) mg/dL Calcium 7.9 L (8.4-10.2) mg/dL
[2023-04-15] MEDS: TAMSULOSIN 0.4 MG CAP.ER.24H PO SCH (17:24)
[2023-04-15 17:33] LABS: Glucose,Whole Blood 86 mg/dL (70-110)
[2023-04-15] MEDS: HYDROcodone/APAP 5-325MG 1 EACH TAB PO PRN (19:59)
[2023-04-15 20:47] LABS: Glucose,Whole Blood 118 mg/dL (70-110)
[2023-04-15] MEDS: ZOLPIDEM 5 MG TAB PO PRN (21:20)
[2023-04-16] MEDS: SODIUM CHLORIDE 0.9% 1,000 ML IV SCH ×3 (02:34→21:38)
[2023-04-16] MEDS: HYDROmorphone 0.5 MG/0.5 ML SYRINGE IVP PRN (02:34)
[2023-04-16] MEDS: KETOROLAC 15 MG/ML 1 ML VIAL IVP SCH ×4 (06:20→23:16)
[2023-04-16 06:48] LABS: Anisocytosis Slight; HCT 30.3 % (39.0-53.0); HGB 9.9 gm/dL (13.0-17.5); Hypochromasia Slight; MCH 28.2 pg (25.0-35.0); MCHC 32.8 g/dL (31.0-37.0); MCV 85.9 fL (80.0-100.0); Mean Platelet Volume 7.1; Platelet Count 222 k/uL (150-450); RBC 3.53 m/uL (4.30-5.90); RDW 16.1 % (11.5-15.5)
[2023-04-16 07:11] LABS: Glucose,Whole Blood 87 mg/dL (70-110)
[2023-04-16 07:14] LABS: ALT 49 U/L (4-49); AST 89 U/L (17-59); African American GFR (CKD) >90 (>60 ml/min/1.73 sqM); Albumin 2.6 g/dL (3.5-5.0); Albumin/Globulin Ratio 1.1; Alkaline Phosphatase 259 U/L (38-126); Anion Gap 3 mmol/L; Blood Urea Nitrogen 6 mg/dL (9-20); Calcium 8.1 mg/dL (8.4-10.2); Carbon Dioxide 31 mmol/L (22-30); Chloride 102 mmol/L (98-107); Globulin 2.4 g/dL; Glucose 93 mg/dL (74-99); Magnesium 1.8 mg/dL (1.6-2.3); Non-African American GFR(CKD) >90 (>60 ml/min/1.73 sqM); Potassium 3.9 mmol/L (3.5-5.1); Sodium 136 mmol/L (137-145); Total Bilirubin 0.5 mg/dL (0.2-1.3)
[2023-04-16] MEDS: HEPARIN SODIUM,PORCINE/PF 5,000 UNIT/0.5 ML SYRINGE SQ SCH ×2 (08:15→21:02)
[2023-04-16] MEDS: FAMOTIDINE 20 MG/2 ML VIAL IV SCH ×2 (08:15→21:02)
[2023-04-16] MEDS: lisinopriL 20 MG TAB PO SCH (08:16)
[2023-04-16 11:58] LABS: Glucose,Whole Blood 94 mg/dL (70-110)
--- NOTE | 2023-04-16 12:25 | P.PN ---
Subjective Progress Note Date: 04/16/23 CHIEF COMPLAINT: Colonic obstruction HISTORY OF PRESENT ILLNESS: Patient is postop day #4 status post diverting loop colostomy. Patient reports his pain is controlled. Denies any nausea or vomiting. Ostomy is functioning. He is tolerating low fiber diet. He has been having issues with urinary retention. He has Vinson catheter in place and he was started on Flomax. Afebrile. WBC is 3.0 Hgb 9.9 and platelets 222 sodium 136 potassium 3.9 creatinine 0.58 PHYSICAL EXAM: VITAL SIGNS: Reviewed. GENERAL: Well-developed in no acute distress. ABDOMEN: Soft. Nondistended. Ostomy functioning. Incision dressing clean dry and intact NEUROLOGIC: Alert and oriented. Cranial nerves II through XII grossly intact. ASSESSMENT: 1. Colonic obstruction due to rectal cancer status post diverting colostomy PLAN: -Recommend urology consult for urinary retention -Continue low fiber diet -Encourage patient to ambulate -Continue pain management -Anticipate possible discharge tomorrow -GI prophylaxis Pepcid and DVT prophylaxis subcu heparin Physician Beer Merchant note has been reviewed by physician. Signing provider agrees with the documented findings, assessment, and plan of care. I have personally seen and examined the patient, reviewed the PRINT PRODUCTION COORDINATOR /PAs history, exam and MDM and agree with the assessment and plan as written. Based on total visit time, I have performed more than 50% of the visit. As above: Patient doing well today. He is having some issues with urinary retention. Continue diet as tolerated. Await oncology consultation. Possible discharge tomorrow. Objective - Vital Signs Vital signs: Vital Signs Temp 98.5 F 04/16/23 07:04 Pulse 54 L 04/16/23 07:04 Resp 16 04/16/23 07:04 BP 147/85 04/16/23 07:04 Pulse Ox 99 04/16/23 07:04 FiO2 Intake & Output 04/15/23 04/16/23 04/16/23 18:59 06:59 18:59 Intake Total 1300 2180 Output Total 1500 2000 Balance -200 180 Intake: Intake, IV Titration 1300 1200 Amount Calcium Gluconate in NaCl 100 1 gm In Saline 1 100ml. bag @ 100 mls/hr IVPB ONCE ONE Rx#:[id number] Sodium Chloride 0.9% 1, 1200 1200 000 ml @ 100 mls/hr IV . Q10H [facility] Rx#:[id number] Oral 980 Output: Urine 1500 2000 Other: Voiding Method Indwelling Catheter Indwelling Catheter Indwelling Catheter - Labs CBC & Chem 7: 04/16/23 06:19 04/16/23 06:19 Labs: Abnormal Lab Results - Last 24 Hours (Table) 04/15/23 04/16/23 04/16/23 Range/Units 20:33 06:19 06:19 WBC 3.0 L (3.8-10.6) k/uL RBC 3.53 L (4.30-5.90) m/uL Hgb 9.9 L (13.0-17.5) gm/dL Hct 30.3 L (39.0-53.0) % RDW 16.1 H (11.5-15.5) % Sodium 136 L (137-145) mmol/L Carbon Dioxide 31 H (22-30) mmol/L BUN 6 L (9-20) mg/dL Creatinine 0.58 L (0.66-1.25) mg/dL POC Glucose (mg/dL) 118 H (70-110) mg/dL Calcium 8.1 L (8.4-10.2) mg/dL AST 89 H (17-59) U/L Alkaline Phosphatase 259 H (38-126) U/L Total Protein 5.0 L (6.3-8.2) g/dL Albumin 2.6 L (3.5-5.0) g/dL
[2023-04-16] MEDS: SCOPOLAMINE 1 MG/72 HR PATCH TRANSDERM SCH (12:49)
--- NOTE | 2023-04-16 13:56 | P.PN ---
Subjective Progress Note Date: 04/16/23 52 years old male with past medical history of hypertension Presents because of abdominal pain and nausea vomiting with no bowel movement for the last 5-6 days. Patient says that is been having constipation, for the last 7 days he did not have bowel movement, yesterday he took extra dose of laxative and at night he had more severe abdominal pain, his pain mainly in the lower abdomen, nonradiating, nonspecific or colicky in nature. Associated with vomiting several times this morning, no blood in it. Patient denies chest pain or dyspnea. No urinary complaints, no neurological complaints lightheaded dizziness weakness or numbness. Patient is a nonsmoker, he is not actively drinking alcohol currently. He has been diagnosed with rectal cancer about 3 years ago now is following up with Dr. Main, he received several chemotherapy and now in the process to switch to another Regimen as per at bedside. He got radiotherapy that his rectal area last year when he has similar presentation and that helped him then Vitals stable Unremarkable CBC, BMP. Lactic acid elevated at 3.9 Liver enzymes elevated AST 113, ALT 100, normal bilirubin. Lipase normal 102. urine analysis is not suspicious for infection. CT of the abdomen and pelvis with contrast: Left basilar pulmonary nodule increased 0.8 cm up to 1.1 cm. Multiple cannonball metastasis to the liver larger 7.6 cm in the right hepatic dome compared to 7.3 cm previously Enlarged portacaval lymph node 4.82.3 cm, slightly larger from before. A few extra peritoneal nodes largest at 2.0 cm, there is moderate to large stool burden especially along the distal aspect of the colon , secondary to soft tissue thickening and narrowing of the level of the rectum. Also has lytic lesion to S2 spinous process Patient currently has normal saline running at 1 30 mL/h, has Dilaudid started, patient is nothing by mouth with surgery and hematology/oncology service consults 04/12/2023 Patient looks more comfortable today, he states that he has what 20 small bowel movement, his abdomen pain is slightly better down to C6-7/10 in severity. He denies any other new complaint He is hemodynamically stable. He remains on normal saline with 30 mL/h and pain medication which looks controlled. Patient is telling me that surgical team are going to operate on him today 04/13/2023 Patient is status post Diverting loop colostomy. Today is postop day #1. Postop pain and nausea vomiting didn't treat symptomatically per surgery team His blood pressure on the high side lisinopril 20 mg home dose was resumed Hematology/oncology team on the case 04/14 Doing well, pain controlled , walked 04/16 Had Urinary retention overnight, villalobos placed, Diet advanced Flomax started , in good spirits 04/17 Patient seen and evaluated at bedside, patient will be seen by urology consult placed, continue Villalobos catheter Assessment: * Distal colon Obstruction with moderate to large stool burden, secondary to rectal stricture. Status post Diverting loop colostomy * recently diagnosed rectal cancer, since May 2020 and multiple liver metastasis, retroperitoneal lymphadenopathy metastasis, spine metastasis to S2 spinous process and possible pulmonary nodule * Left basilar pulmonary nodule increased 0.8 cm up to 1.1 cm, mostly secondary to metastatic disease * Transaminitis * Post Op Urinary retention * Elevated lactic acid on admission * Hypertension Plan: * Continue with postop care. Surgery team on the case , Diet advanced * IV fluids with normal saline * Pain medication * Hematology/oncology consult * Started on Flomax, Villalobos in place, urology consulted * Labs and medication were reviewed.. * DVT prophylaxis: Subcutaneous heparin * GI Prophylaxis: Pepcid Objective - Vital Signs Vital signs: Vital Signs Temp 98.5 F 04/16/23 07:04 Pulse 54 L 04/16/23 07:04 Resp 16 04/16/23 07:04 BP 147/85 04/16/23 07:04 Pulse Ox 99 04/16/23 07:04 FiO2 Intake & Output 04/15/23 04/16/23 04/16/23 18:59 06:59 18:59 Intake Total 1300 2180 Output Total 1500 2000 Balance -200 180 Intake: Intake, IV Titration 1300 1200 Amount Calcium Gluconate in NaCl 100 1 gm In Saline 1 100ml. bag @ 100 mls/hr IVPB ONCE ONE Rx#:[id number] Sodium Chloride 0.9% 1, 1200 1200 000 ml @ 100 mls/hr IV . Q10H [facility] Rx#:[id number] Oral 980 Output: Urine 1500 2000 Other: Voiding Method Indwelling Catheter Indwelling Catheter Indwelling Catheter - Exam EXAM GENERAL: The patient is alert and oriented x3, not in any acute distress. Well developed, well nourished. villalobos in place HEENT: Pupils are round and equally reacting to light. EOMI. No scleral icterus. No conjunctival pallor. Normocephalic, atraumatic. No pharyngeal erythema. No thyromegaly. CARDIOVASCULAR: S1 and S2 present. No murmurs, rubs, or gallops. PULMONARY: Chest is clear to auscultation, no wheezing or crackles. ABDOMEN: Soft, nondistended, normoactive bowel sounds. No palpable organomegaly, ostomy in place , non tender MUSCULOSKELETAL: No joint swelling or deformity. EXTREMITIES: No cyanosis, clubbing, or pedal edema. NEUROLOGICAL: Gross neurological examination did not reveal any focal deficits. SKIN: No rashes. no petechiae. - Labs CBC & Chem 7: 04/16/23 06:19 04/16/23 06:19 Labs: Abnormal Lab Results - Last 24 Hours (Table) 04/15/23 04/16/23 04/16/23 Range/Units 20:33 06:19 06:19 WBC 3.0 L (3.8-10.6) k/uL RBC 3.53 L (4.30-5.90) m/uL Hgb 9.9 L (13.0-17.5) gm/dL Hct 30.3 L (39.0-53.0) % RDW 16.1 H (11.5-15.5) % Sodium 136 L (137-145) mmol/L Carbon Dioxide 31 H (22-30) mmol/L BUN 6 L (9-20) mg/dL Creatinine 0.58 L (0.66-1.25) mg/dL POC Glucose (mg/dL) 118 H (70-110) mg/dL Calcium 8.1 L (8.4-10.2) mg/dL AST 89 H (17-59) U/L Alkaline Phosphatase 259 H (38-126) U/L Total Protein 5.0 L (6.3-8.2) g/dL Albumin 2.6 L (3.5-5.0) g/dL
[2023-04-16 17:11] LABS: Glucose,Whole Blood 111 mg/dL (70-110)
[2023-04-16] MEDS: TAMSULOSIN 0.4 MG CAP.ER.24H PO SCH (18:11)
[2023-04-16] MEDS: HYDROcodone/APAP 5-325MG 1 EACH TAB PO PRN (19:35)
--- NOTE | 2023-04-16 19:41 | P.PN ---
Subjective Progress Note Date: 04/16/23 Principal diagnosis: Bowel obstruction, met rectal carcinoma Pt is post op day 4, he is doing good, some lower abd discomfort. He is ambulating in the hallway, he is managing his ostomy, tolerating oral intake. Objective - Vital Signs Vital signs: Vital Signs Temp 98.5 F 04/16/23 07:04 Pulse 54 L 04/16/23 07:04 Resp 16 04/16/23 07:04 BP 147/85 04/16/23 07:04 Pulse Ox 99 04/16/23 07:04 FiO2 Intake & Output 04/15/23 04/16/23 04/16/23 18:59 06:59 18:59 Intake Total 1300 2180 Output Total 1500 2000 Balance -200 180 Intake: Intake, IV Titration 1300 1200 Amount Calcium Gluconate in NaCl 100 1 gm In Saline 1 100ml. bag @ 100 mls/hr IVPB ONCE ONE Rx#:[id number] Sodium Chloride 0.9% 1, 1200 1200 000 ml @ 100 mls/hr IV . Q10H [facility] Rx#:[id number] Oral 980 Output: Urine 1500 2000 Other: Voiding Method Indwelling Catheter Indwelling Catheter Indwelling Catheter - Constitutional General appearance: Present: average body habitus, cooperative, no acute distress - EENT Eyes: Present: anicteric sclerae, EOMI ENT: Present: hearing grossly normal - Respiratory Details: resp even and unlabored when ambulating - Cardiovascular Details: skin warm and dry to touch - Peripheral edema leg Peripheral Edema: bilateral: None - Integumentary Integumentary: Present: normal - Neurologic Neurologic: Present: CNII-XII intact - Musculoskeletal Musculoskeletal: Present: strength equal bilaterally - Psychiatric Psychiatric: Present: A&O x's 3, appropriate affect, intact judgment & insight - Labs CBC & Chem 7: 04/16/23 06:19 04/16/23 06:19 Labs: Abnormal Lab Results - Last 24 Hours (Table) 04/15/23 04/16/23 04/16/23 Range/Units 20:33 06:19 06:19 WBC 3.0 L (3.8-10.6) k/uL RBC 3.53 L (4.30-5.90) m/uL Hgb 9.9 L (13.0-17.5) gm/dL Hct 30.3 L (39.0-53.0) % RDW 16.1 H (11.5-15.5) % Sodium 136 L (137-145) mmol/L Carbon Dioxide 31 H (22-30) mmol/L BUN 6 L (9-20) mg/dL Creatinine 0.58 L (0.66-1.25) mg/dL POC Glucose (mg/dL) 118 H (70-110) mg/dL Calcium 8.1 L (8.4-10.2) mg/dL AST 89 H (17-59) U/L Alkaline Phosphatase 259 H (38-126) U/L Total Protein 5.0 L (6.3-8.2) g/dL Albumin 2.6 L (3.5-5.0) g/dL Assessment and Plan (1) Colonic obstruction Current Visit: Yes Status: Acute Priority: High Code(s): K56.609 - UNSP INTESTNL OBST, UNSP TO PARTIAL VERSUS COMPLETE OBST SNOMED Code(s): 94288572 (2) Malignant neoplasm of rectum metastatic to liver Current Visit: Yes Status: Chronic Priority: Medium Code(s): C20 - MALIGNANT NEOPLASM OF RECTUM; C78.7 - SECONDARY MALIG NEOPLASM OF LIVER AND INTRAHEPATIC BILE DUCT SNOMED Code(s): 10538963 Plan: Bowel obstruction -S/P diverting loop colostomy -Doing well post op, eating, has had ostomy output, ambulating -Defer postop care to Surgeon Metastatic rectal carcinoma -Recent disease progression -Assess pt is 4 weeks to see if healed enough to begin palliative treatment Pt understands the plan of care
[2023-04-16 20:36] LABS: Glucose,Whole Blood 107 mg/dL (70-110)
[2023-04-16] MEDS: ZOLPIDEM 5 MG TAB PO PRN (21:02)
[2023-04-17] MEDS: HYDROmorphone 0.5 MG/0.5 ML SYRINGE IVP PRN (04:22)
[2023-04-17] MEDS: KETOROLAC 15 MG/ML 1 ML VIAL IVP SCH ×4 (05:34→23:51)
[2023-04-17 06:42] LABS: Anisocytosis Slight; HCT 32.8 % (39.0-53.0); HGB 10.6 gm/dL (13.0-17.5); MCH 27.9 pg (25.0-35.0); MCHC 32.4 g/dL (31.0-37.0); MCV 86.1 fL (80.0-100.0); Mean Platelet Volume 6.9; Platelet Count 260 k/uL (150-450); RBC 3.81 m/uL (4.30-5.90); RDW 16.1 % (11.5-15.5); WBC 3.6 k/uL (3.8-10.6)
[2023-04-17 06:48] LABS: African American GFR (CKD) >90 (>60 ml/min/1.73 sqM); Anion Gap 6 mmol/L; Blood Urea Nitrogen 5 mg/dL (9-20); Calcium 8.4 mg/dL (8.4-10.2); Carbon Dioxide 29 mmol/L (22-30); Chloride 100 mmol/L (98-107); Glucose 104 mg/dL (74-99); Non-African American GFR(CKD) >90 (>60 ml/min/1.73 sqM); Potassium 3.7 mmol/L (3.5-5.1); Sodium 135 mmol/L (137-145)
[2023-04-17 06:57] LABS: Glucose,Whole Blood 114 mg/dL (70-110)
[2023-04-17] MEDS: FAMOTIDINE 20 MG/2 ML VIAL IV SCH ×2 (09:01→22:26)
[2023-04-17] MEDS: HEPARIN SODIUM,PORCINE/PF 5,000 UNIT/0.5 ML SYRINGE SQ SCH ×2 (09:01→22:26)
[2023-04-17] MEDS: SODIUM CHLORIDE 0.9% 1,000 ML IV SCH (09:01)
[2023-04-17] MEDS: lisinopriL 20 MG TAB PO SCH (09:01)
[2023-04-17] MEDS ORDERED: lisinopriL 20 MG TAB PO STA (09:47)
[2023-04-17 11:11] LABS: Glucose,Whole Blood 96 mg/dL (70-110)
--- NOTE | 2023-04-17 12:48 | P.PN ---
Subjective Progress Note Date: 04/17/23 CHIEF COMPLAINT: Colonic obstruction HISTORY OF PRESENT ILLNESS: Patient is postop day #5 status post diverting loop colostomy. Patient reports his pain is controlled. Denies any nausea or vomiting. Ostomy with air and serosanguineous liquid. He is tolerating low fiber diet. He has been having issues with urinary retention. He has Vinson catheter in place and he was started on Flomax yesterday. Patient seen by urology service this morning. Vinson catheter has been removed and undergoing a voiding trial. Afebrile. WBC 3.6 Hgb 10.6 platelets 260 sodium is 135 potassium 3.7 creatinine 0.53 PHYSICAL EXAM: VITAL SIGNS: Reviewed. GENERAL: Well-developed in no acute distress. ABDOMEN: Soft. Nondistended. Ostomy with air and serosanguineous fluid. Incision site clean dry and intact NEUROLOGIC: Alert and oriented. Cranial nerves II through XII grossly intact. ASSESSMENT: 1. Colonic obstruction due to rectal cancer status post diverting colostomy PLAN: -Urinary retention management per urology -Continue low fiber diet -Encourage patient to ambulate -Continue pain management -GI prophylaxis Pepcid and DVT prophylaxis subcu heparin Physician Slitter Processed Film note has been reviewed by physician. Signing provider agrees with the documented findings, assessment, and plan of care. I have personally seen and examined the patient, reviewed the BOOKKEEPING ASSISTANT /PAs history, exam and MDM and agree with the assessment and plan as written. Based on total visit time, I have performed more than 50% of the visit. As above: Overall patient doing fairly well. He was able to void a small amount of urine after Vinson catheter removal. Continue to follow hemoglobin. Continue ostomy teaching. Objective - Vital Signs Vital signs: Vital Signs Temp 98.2 F 04/17/23 11:12 Pulse 73 04/17/23 11:12 Resp 18 04/17/23 11:12 BP 159/98 04/17/23 11:12 Pulse Ox 97 04/17/23 11:12 FiO2 Intake & Output 04/16/23 04/17/23 04/17/23 18:59 06:59 18:59 Intake Total 1080 Output Total 2700 2405 1200 Balance -2700 -1325 -1200 Intake: Intake, IV Titration 120 Amount Sodium Chloride 0.9% 1, 120 000 ml @ 100 mls/hr IV . Q10H [facility] Rx#:[id number] Oral 960 Output: Urine 2700 2400 1200 Stool 5 Other: Voiding Method Indwelling Catheter Indwelling Catheter Indwelling Catheter - Labs CBC & Chem 7: 04/17/23 06:09 04/17/23 06:09 Labs: Abnormal Lab Results - Last 24 Hours (Table) 04/16/23 04/17/23 04/17/23 Range/Units 17:09 06:09 06:09 WBC 3.6 L (3.8-10.6) k/uL RBC 3.81 L (4.30-5.90) m/uL Hgb 10.6 L (13.0-17.5) gm/dL Hct 32.8 L (39.0-53.0) % RDW 16.1 H (11.5-15.5) % Sodium 135 L (137-145) mmol/L BUN 5 L (9-20) mg/dL Creatinine 0.53 L (0.66-1.25) mg/dL Glucose 104 H (74-99) mg/dL POC Glucose (mg/dL) 111 H (70-110) mg/dL 04/17/23 Range/Units 06:56 WBC (3.8-10.6) k/uL RBC (4.30-5.90) m/uL Hgb (13.0-17.5) gm/dL Hct (39.0-53.0) % RDW (11.5-15.5) % Sodium (137-145) mmol/L BUN (9-20) mg/dL Creatinine (0.66-1.25) mg/dL Glucose (74-99) mg/dL POC Glucose (mg/dL) 114 H (70-110) mg/dL
--- NOTE | 2023-04-17 13:24 | P.PN ---
Subjective Progress Note Date: 04/17/23 52 years old male with past medical history of hypertension Presents because of abdominal pain and nausea vomiting with no bowel movement for the last 5-6 days. Patient says that is been having constipation, for the last 7 days he did not have bowel movement, yesterday he took extra dose of laxative and at night he had more severe abdominal pain, his pain mainly in the lower abdomen, nonradiating, nonspecific or colicky in nature. Associated with vomiting several times this morning, no blood in it. Patient denies chest pain or dyspnea. No urinary complaints, no neurological complaints lightheaded dizziness weakness or numbness. Patient is a nonsmoker, he is not actively drinking alcohol currently. He has been diagnosed with rectal cancer about 3 years ago now is following up with Dr. Main, he received several chemotherapy and now in the process to switch to another Regimen as per at bedside. He got radiotherapy that his rectal area last year when he has similar presentation and that helped him then Vitals stable Unremarkable CBC, BMP. Lactic acid elevated at 3.9 Liver enzymes elevated AST 113, ALT 100, normal bilirubin. Lipase normal 102. urine analysis is not suspicious for infection. CT of the abdomen and pelvis with contrast: Left basilar pulmonary nodule increased 0.8 cm up to 1.1 cm. Multiple cannonball metastasis to the liver larger 7.6 cm in the right hepatic dome compared to 7.3 cm previously Enlarged portacaval lymph node 4.82.3 cm, slightly larger from before. A few extra peritoneal nodes largest at 2.0 cm, there is moderate to large stool burden especially along the distal aspect of the colon , secondary to soft tissue thickening and narrowing of the level of the rectum. Also has lytic lesion to S2 spinous process Patient currently has normal saline running at 1 30 mL/h, has Dilaudid started, patient is nothing by mouth with surgery and hematology/oncology service consults 04/12/2023 Patient looks more comfortable today, he states that he has what 20 small bowel movement, his abdomen pain is slightly better down to C6-7/10 in severity. He denies any other new complaint He is hemodynamically stable. He remains on normal saline with 30 mL/h and pain medication which looks controlled. Patient is telling me that surgical team are going to operate on him today 04/13/2023 Patient is status post Diverting loop colostomy. Today is postop day #1. Postop pain and nausea vomiting didn't treat symptomatically per surgery team His blood pressure on the high side lisinopril 20 mg home dose was resumed Hematology/oncology team on the case 04/14 Doing well, pain controlled , walked 04/15 Had Urinary retention overnight, villalobos placed, Diet advanced Flomax started , in good spirits 04/16 Patient seen and evaluated at bedside, patient will be seen by urology consult placed, continue Villalobos catheter 04/17 Patient seen and examined at bedside, care plan discussed including urinary retention. Villalobos catheter removed will need trial of voiding Assessment: * Distal colon Obstruction with moderate to large stool burden, secondary to rectal stricture. Status post Diverting loop colostomy * recently diagnosed rectal cancer, since May 2020 and multiple liver metastasis, retroperitoneal lymphadenopathy metastasis, spine metastasis to S2 spinous process and possible pulmonary nodule * Left basilar pulmonary nodule increased 0.8 cm up to 1.1 cm, mostly secondary to metastatic disease * Transaminitis * Post Op Urinary retention * Elevated lactic acid on admission * Hypertension Plan: * Continue with postop care. Surgery team on the case , Diet advanced , tolerating diet potential discharge within the next 24 * Appropriately resuscitated with fluid * Pain medication, will address upon discharge * Hematology/oncology consult, will need outpatient follow-up * Continue Flomax, we will do trial of void, urology consulted will do post void residual * Labs and medication were reviewed.. * DVT prophylaxis: Subcutaneous heparin * GI Prophylaxis: Pepcid Objective - Vital Signs Vital signs: Vital Signs Temp 98.2 F 04/17/23 11:12 Pulse 73 04/17/23 11:12 Resp 18 04/17/23 11:12 BP 159/98 04/17/23 11:12 Pulse Ox 97 04/17/23 11:12 FiO2 Intake & Output 04/16/23 04/17/23 04/17/23 18:59 06:59 18:59 Intake Total 1080 Output Total 2700 2405 1200 Balance -2700 -1325 -1200 Intake: Intake, IV Titration 120 Amount Sodium Chloride 0.9% 1, 120 000 ml @ 100 mls/hr IV . Q10H [facility] Rx#:[id number] Oral 960 Output: Urine 2700 2400 1200 Stool 5 Other: Voiding Method Indwelling Catheter Indwelling Catheter Indwelling Catheter - Labs CBC & Chem 7: 04/17/23 06:09 04/17/23 06:09 Labs: Abnormal Lab Results - Last 24 Hours (Table) 04/16/23 04/17/23 04/17/23 Range/Units 17:09 06:09 06:09 WBC 3.6 L (3.8-10.6) k/uL RBC 3.81 L (4.30-5.90) m/uL Hgb 10.6 L (13.0-17.5) gm/dL Hct 32.8 L (39.0-53.0) % RDW 16.1 H (11.5-15.5) % Sodium 135 L (137-145) mmol/L BUN 5 L (9-20) mg/dL Creatinine 0.53 L (0.66-1.25) mg/dL Glucose 104 H (74-99) mg/dL POC Glucose (mg/dL) 111 H (70-110) mg/dL 04/17/23 Range/Units 06:56 WBC (3.8-10.6) k/uL RBC (4.30-5.90) m/uL Hgb (13.0-17.5) gm/dL Hct (39.0-53.0) % RDW (11.5-15.5) % Sodium (137-145) mmol/L BUN (9-20) mg/dL Creatinine (0.66-1.25) mg/dL Glucose (74-99) mg/dL POC Glucose (mg/dL) 114 H (70-110) mg/dL
[2023-04-17] MEDS: HYDROcodone/APAP 5-325MG 1 EACH TAB PO PRN (13:53)
[2023-04-17 15:14] VITALS: BMI 25.1
--- NOTE | 2023-04-17 15:54 | CDI ---
Documentation Clarification Form Date: 04/17/2023 12:11:00 PM From: Deann Vazquez RN, CCDS Admit Date: 04/11/2023 08:39:00 AM Patient Name: Manuel Guevara Visit Number: [id number] Discharge Date: ATTENTION: The Clinical Documentation Specialists (CDI) and [facility] Coding Staff appreciate your assistance in clarifying documentation. Please respond to the clarification below the line at the bottom and electronically sign. The CDI & [facility] Coding staff will review the response and follow-up if needed. Please note: Queries are made part of the Legal Health Record. If you have any questions, please contact the author of this message via ITS. Dr. Hyacinth Campos Postop urinary retention is documented is documented in your progress notes starting on 04/14/2023 and patient had Diverting loop colostomy on 04/12/2023. Additional clarification is requested regarding the relationship, if any, that exists between the diagnosis and the procedure. Patients Admitting Diagnosis: Colonic obstruction Post-Operative Diagnosis: Same Procedure performed: Diverting loop colostomy History/Risk Factors: Hypertension, Rectal cancer stage IV with metastasis liver Clinical Indicators: 52-year-old male present with complaints of abdominal pain, nausea, vomiting with no bowel movement for last 5-[address] abdomin/pelvis distal colonic obstruction at the level of the upper rectum secondary to annular soft tissue thickening and narrowing, likely form patient's underlying rectal cancer. 04/11 Oncology consult: Metastatic rectal adenocarcinoma: Due to disease progression patient has been on multiple treatment regimens. He had palliative XRT to rectal lesion in August/2022 Surgical consult: Suspected distal colonic obstruction at the level of the upper rectum possible due to patient's underlying rectal cancer 04/15 Urine analysis is not suspicious for infection ( pre progress note 04/15/23) Treatment: Vinson Catheter, trial void prior to DC .9NS @ 100 M HR 04/11-04/17 Flomax 0.4 MG PO PC 04/15-04/17 What relationship, if any, exists between the diagnosis of postop urinary retention and the procedure: [ ] Urinary retention is a complication of surgical procedure. [ ] Urinary retention is an expected outcome of the surgical procedure. [y ] Urinary retention is related to patients co-morbid condition(s) of [insert co-morbid dxs] & not a complication of the procedure. [ ] Other please specify ____ [ ] Unable to determine (Template Last Revised: January 2021) MTDD
[2023-04-17] MEDS: TAMSULOSIN 0.4 MG CAP.ER.24H PO SCH (18:12)
--- NOTE | 2023-04-17 18:47 | P.GSCN ---
History of Present Illness Consult date: 04/17/23 Reason for Consult: Urinary retention History of present illness: This is a 52-year-old male with history of metastatic rectal cancer, underwent a diverting colostomy by Dr. Zuñiga on April 12. Urology is consulted for urinary retention. He developed a postoperative urinary retention a Vinson catheter was placed on April 15 and he was started on Flomax. No previous history of urinary retention. He does have some hesitancy at baseline but indicates he is able to void to completion prior to his hospital admission. Denies any history of UTIs or kidney stones. No previous prostate or bladder surgeries. Review of Systems - Constitutional Denies fever, Denies weight loss - Cardiovascular Denies chest pain, Denies shortness of breath - Respiratory Denies cough, Denies 7 - Gastrointestinal Reports as per HPI - Genitourinary Reports urinary retention Past Medical History Past Medical History: Cancer, Hypertension Additional Past Medical History / Comment(s): rectal cancer diagnosed May 2020 and new liver mass to be biopsied 07/20/20 History of Any Multi-Drug Resistant Organisms: None Reported Past Surgical History: No Surgical Hx Reported Additional Past Surgical History / Comment(s): will have mediport placed Monday 07/09, colonoscopy Past Anesthesia/Blood Transfusion Reactions: No Reported Reaction Additional Past Anesthesia/Blood Transfusion Reaction / Comm: HAS NEVER HAD GENERAL ANESTHESIA Past Psychological History: No Psychological Hx Reported Smoking Status: Never smoker Past Alcohol Use History: Occasional Past Drug Use History: None Reported - Past Family History Mother Family Medical History: Cancer Medications and Allergies Home Medications Medication Instructions Recorded Confirmed Type Docusate [Colace] 100 mg PO BID PRN 04/11/23 04/11/23 History lisinopriL [Zestril] 20 mg PO DAILY 04/11/23 04/11/23 History oxyCODONE-APAP 10-325MG [Percocet 1 tab PO Q6HR PRN 04/11/23 04/11/23 History 10-325 mg] polyethylene glycoL 3350 [Miralax] 17 gm PO DAILY PRN 04/11/23 04/11/23 History Allergies Allergy/AdvReac Type Severity Reaction Status Date / Time No Known Allergies Allergy Verified 04/11/23 11:28 Surgical - Exam Vital Signs Temp Pulse Resp BP Pulse Ox 98.1 F 119 H 18 153/68 98 04/11/23 05:51 04/11/23 05:51 04/11/23 05:51 04/11/23 05:51 04/11/23 05:51 - General no distress, no pain - Eyes normal ocular movement, no pale - ENT normal nares, normal mucosa - Respiratory normal expansion, normal respiratory effort - Abdomen Abdomen: soft, non tender Results - Labs 04/17/23 06:09 04/17/23 06:09 Abnormal Lab Results - Last 24 Hours (Table) 04/17/23 04/17/23 04/17/23 Range/Units 06:09 06:09 06:56 WBC 3.6 L (3.8-10.6) k/uL RBC 3.81 L (4.30-5.90) m/uL Hgb 10.6 L (13.0-17.5) gm/dL Hct 32.8 L (39.0-53.0) % RDW 16.1 H (11.5-15.5) % Sodium 135 L (137-145) mmol/L BUN 5 L (9-20) mg/dL Creatinine 0.53 L (0.66-1.25) mg/dL Glucose 104 H (74-99) mg/dL POC Glucose (mg/dL) 114 H (70-110) mg/dL Diabetes panel 04/17/23 Range/Units 06:09 Sodium 135 L (137-145) mmol/L Potassium 3.7 (3.5-5.1) mmol/L Chloride 100 (98-107) mmol/L Carbon Dioxide 29 (22-30) mmol/L BUN 5 L (9-20) mg/dL Creatinine 0.53 L (0.66-1.25) mg/dL Glucose 104 H (74-99) mg/dL Calcium 8.4 (8.4-10.2) mg/dL Calcium panel 04/17/23 Range/Units 06:09 Calcium 8.4 (8.4-10.2) mg/dL Pituitary panel 04/17/23 Range/Units 06:09 Sodium 135 L (137-145) mmol/L Potassium 3.7 (3.5-5.1) mmol/L Chloride 100 (98-107) mmol/L Carbon Dioxide 29 (22-30) mmol/L BUN 5 L (9-20) mg/dL Creatinine 0.53 L (0.66-1.25) mg/dL Glucose 104 H (74-99) mg/dL Calcium 8.4 (8.4-10.2) mg/dL Adrenal panel 04/17/23 Range/Units 06:09 Sodium 135 L (137-145) mmol/L Potassium 3.7 (3.5-5.1) mmol/L Chloride 100 (98-107) mmol/L Carbon Dioxide 29 (22-30) mmol/L BUN 5 L (9-20) mg/dL Creatinine 0.53 L (0.66-1.25) mg/dL Glucose 104 H (74-99) mg/dL Calcium 8.4 (8.4-10.2) mg/dL Assessment and Plan Assessment: 52-year-old male with postoperative urinary retention has some hesitancy a baseline. He is currently on Flomax which was started on April 15. -Repeat trial of void today -continue Flomax
[2023-04-17] MEDS: ZOLPIDEM 5 MG TAB PO PRN (23:51)
[2023-04-18] MEDS: KETOROLAC 15 MG/ML 1 ML VIAL IVP SCH (06:16)
[2023-04-18 07:57] LABS: Anisocytosis Slight; HCT 33.5 % (39.0-53.0); MCH 27.8 pg (25.0-35.0); MCHC 32.8 g/dL (31.0-37.0); MCV 84.8 fL (80.0-100.0); Mean Platelet Volume 7.2; Platelet Count 283 k/uL (150-450); RBC 3.95 m/uL (4.30-5.90); RDW 16.1 % (11.5-15.5); WBC 3.8 k/uL (3.8-10.6)
[2023-04-18 08:06] VITALS: RESP 18
[2023-04-18 08:17] LABS: African American GFR (CKD) >90 (>60 ml/min/1.73 sqM); Anion Gap 8 mmol/L; Blood Urea Nitrogen 8 mg/dL (9-20); Calcium 8.7 mg/dL (8.4-10.2); Carbon Dioxide 27 mmol/L (22-30); Chloride 101 mmol/L (98-107); Glucose 95 mg/dL (74-99); Non-African American GFR(CKD) >90 (>60 ml/min/1.73 sqM); Potassium 3.7 mmol/L (3.5-5.1); Sodium 136 mmol/L (137-145)
[2023-04-18] MEDS ORDERED: lisinopriL 20 MG TAB PO SCH (09:00)
[2023-04-18] MEDS ORDERED: TAMSULOSIN 0.4 MG CAP.ER.24H PO SCH (09:00)
--- NOTE | 2023-04-18 09:54 | P.DS ---
Providers Date of admission: 04/11/23 08:39 Expected date of discharge: 04/18/23 Attending physician: Austen Calvillo MD Consults: 04/11/23 09:03 Consult Physician Urgent Consulting Provider: Christiano Zuñiga Consult Reason/Comments: Colonic obstruction Do you want consulting provider notified?: Yes Consult Physician Urgent Consulting Provider: Dai Main Consult Reason/Comments: Metastatic rectal cancer Do you want consulting provider notified?: Yes 04/16/23 09:30 Consult Physician Routine Consulting Provider: Dileep Cole Consult Reason/Comments: retention/pelvic tumor Do you want consulting provider notified?: Yes Primary care physician: [facility] [employer] [employer] [facility]: 52 years old male with past medical history of hypertension Presents because of abdominal pain and nausea vomiting with no bowel movement for the last 5-6 days. Patient says that is been having constipation, for the last 7 days he did not have bowel movement, yesterday he took extra dose of laxative and at night he had more severe abdominal pain, his pain mainly in the lower abdomen, nonradiating, nonspecific or colicky in nature. Associated with vomiting several times this morning, no blood in it. Patient denies chest pain or dyspnea. No urinary complaints, no neurological complaints lightheaded dizziness weakness or numbness. Patient is a nonsmoker, he is not actively drinking alcohol currently. He has been diagnosed with rectal cancer about 3 years ago now is following up with Dr. Main, he received several chemotherapy and now in the process to switch to another Regimen as per at bedside. He got radiotherapy that his rectal area last year when he has similar presentation and that helped him then Vitals stable Unremarkable CBC, BMP. Lactic acid elevated at 3.9 Liver enzymes elevated AST 113, ALT 100, normal bilirubin. Lipase normal 102. urine analysis is not suspicious for infection. CT of the abdomen and pelvis with contrast: Left basilar pulmonary nodule increased 0.8 cm up to 1.1 cm. Multiple cannonball metastasis to the liver larger 7.6 cm in the right hepatic dome compared to 7.3 cm previously Enlarged portacaval lymph node 4.82.3 cm, slightly larger from before. A few extra peritoneal nodes largest at 2.0 cm, there is moderate to large stool burden especially along the distal aspect of the colon , secondary to soft tissue thickening and narrowing of the level of the rectum. Also has lytic lesion to S2 spinous process Patient currently has normal saline running at 1 30 mL/h, has Dilaudid started, patient is nothing by mouth with surgery and hematology/oncology service consults 04/12/2023 Patient looks more comfortable today, he states that he has what 20 small bowel movement, his abdomen pain is slightly better down to C6-7/10 in severity. He denies any other new complaint He is hemodynamically stable. He remains on normal saline with 30 mL/h and pain medication which looks controlled. Patient is telling me that surgical team are going to operate on him today 04/13/2023 Patient is status post Diverting loop colostomy. Today is postop day #1. Postop pain and nausea vomiting didn't treat symptomatically per surgery team His blood pressure on the high side lisinopril 20 mg home dose was resumed Hematology/oncology team on the case 04/14 Doing well, pain controlled , walked 04/15 Had Urinary retention overnight, villalobos placed, Diet advanced Flomax started , in good spirits 04/16 Patient seen and evaluated at bedside, patient will be seen by urology consult placed, continue Villalobos catheter 04/17 Patient seen and examined at bedside, care plan discussed including urinary retention. Villalobos catheter removed will need trial of voiding 04/18 Patient failed trial of void Villalobos catheter was placed again. Patient seen by urology outpatient follow-up continue patient on Flomax. Patient cleared by general surgery for discharge instructions provided by surgery for postoperative wound care. Prescription for Zofran and pain medication provided. Prescription for Flomax and lisinopril provided EXAM GENERAL: The patient is alert and oriented x3, not in any acute distress. Well developed, well nourished. villalobos in place HEENT: Pupils are round and equally reacting to light. EOMI. No scleral icterus. No conjunctival pallor. Normocephalic, atraumatic. No pharyngeal erythema. No thyromegaly. CARDIOVASCULAR: S1 and S2 present. No murmurs, rubs, or gallops. PULMONARY: Chest is clear to auscultation, no wheezing or crackles. ABDOMEN: Soft, nondistended, normoactive bowel sounds. No palpable organomegaly, ostomy in place , non tender MUSCULOSKELETAL: No joint swelling or deformity. EXTREMITIES: No cyanosis, clubbing, or pedal edema. NEUROLOGICAL: Gross neurological examination did not reveal any focal deficits. SKIN: No rashes. no petechiae. Assessment: Assessment: * Distal colon Obstruction with moderate to large stool burden, secondary to rectal stricture. Status post Diverting loop colostomy * recently diagnosed rectal cancer, since May 2020 and multiple liver metastasis, retroperitoneal lymphadenopathy metastasis, spine metastasis to S2 spinous process and possible pulmonary nodule * Left basilar pulmonary nodule increased 0.8 cm up to 1.1 cm, mostly secondary to metastatic disease * Transaminitis * Post Op Urinary retention secondary to comorbidities postoperatively * Elevated lactic acid on admission * Hypertension Plan: * Continue with postop care. Surgery team on the case , Diet advanced * Appropriately resuscitated with fluid * Pain medication, will address upon discharge * Hematology/oncology consult, will need outpatient follow-up * Continue Flomax, we will do trial of void, urology consulted will do post void residual, discharged with Villalobos cath and Flomax, failed trial of voiding * Labs and medication were reviewed. * Dose of lisinopril increased prescription provided Patient Condition at Discharge: Fair Plan - Discharge Summary Discharge Rx Participant: No New Discharge Prescriptions: New Tamsulosin [Flomax] 0.4 mg PO BID 30 Days #30 cap Ondansetron Odt [Zofran Odt] 4 mg PO Q8HR PRN 5 Days #15 tab PRN Reason: Nausea lisinopriL [Zestril] 40 mg PO DAILY 30 Days #30 tab HYDROcodone/APAP 5-325MG [[place] 5-325] 1 each PO Q4HR PRN 3 Days #18 tab PRN Reason: Moderate Pain (Scale 4 To 6) Continue Docusate [Colace] 100 mg PO BID PRN PRN Reason: Constipation Discontinued oxyCODONE-APAP 10-325MG [Percocet 10-325 mg] 1 tab PO Q6HR PRN PRN Reason: Pain polyethylene glycoL 3350 [Miralax] 17 gm PO DAILY PRN PRN Reason: Constipation lisinopriL [Zestril] 20 mg PO DAILY Discharge Medication List Docusate [Colace] 100 mg PO BID PRN 04/11/23 [History] HYDROcodone/APAP 5-325MG [[place] 5-325] 1 each PO Q4HR PRN 3 Days #18 tab 04/18/23 [Rx] Ondansetron Odt [Zofran Odt] 4 mg PO Q8HR PRN 5 Days #15 tab 04/18/23 [Rx] Tamsulosin [Flomax] 0.4 mg PO BID 30 Days #30 cap 04/18/23 [Rx] lisinopriL [Zestril] 40 mg PO DAILY 30 Days #30 tab 04/18/23 [Rx] Follow up Appointment(s)/Referral(s): Dileep Cole MD [STAFF PHYSICIAN] - 10 Days Ben Cheek DO [Primary Care Provider] - 1-2 days Dai Main MD [STAFF PHYSICIAN] - 05/22/23 4:00 pm Patient Instructions/Handouts: Colostomy Creation (GEN) Activity/Diet/Wound Care/Special Instructions: Have patient remove catheter 6 hours prior to his urology appointment, Teach the patient how to remove his catheter Recommendations for Loop Colostomy Care post hospital stay as follows: LAst pouching system change date: 04.15.2023 Mr Guevara will be receiving the following Colostomy care supplies for home as follows from the hospital: Convatec one piece cut to fit with filter pouches #[id number] (3) Davi seals (3) Ostomy Powder (1) No sting prep pads (10) Measuring guide Mr Guevara is to empty th epouch when it is 1/2 to 1/3 full in the bathroom while sittign on the toilet or straddling the toilet Mr Guevara is to change the entire pouching system every 3 - 5 days unless otherwise directed Mr Guevara will need Home Health to assist with arrangement of additional ostomy supplies in 2 - 3 weeks after discharge form the hospital - Mr Guevara desires disposable pouches if possible Discharge Disposition: HOME SELF-CARE
[2023-04-18] MEDS: HEPARIN SODIUM,PORCINE/PF 5,000 UNIT/0.5 ML SYRINGE SQ SCH (10:05)
[2023-04-18] MEDS: FAMOTIDINE 20 MG/2 ML VIAL IV SCH (10:05)
[2023-04-18 12:54] VITALS: BP 168/102; PULSE 82; TEMP 98.4
--- NOTE | 2023-04-18 13:10 | P.PN ---
Subjective Progress Note Date: 04/18/23 CHIEF COMPLAINT: Colonic obstruction HISTORY OF PRESENT ILLNESS: Patient is postop day #6 status post diverting loop colostomy. Patient reports his pain is controlled. Denies any nausea or vomiting. Ostomy with air and serosanguineous liquid. He is tolerating low fiber diet. Patient seen by urology regarding urinary retention. Recommending Vinson catheter states in place for 1 week. Patient is scheduled for discharge today. Afebrile. WBC 3.8HP is 11 platelets 283 PHYSICAL EXAM: VITAL SIGNS: Reviewed. GENERAL: Well-developed in no acute distress. ABDOMEN: Soft. Nondistended. Ostomy with air and serosanguineous fluid. Incision site clean dry and intact NEUROLOGIC: Alert and oriented. Cranial nerves II through XII grossly intact. ASSESSMENT: 1. Colonic obstruction due to rectal cancer status post diverting colostomy PLAN: -Patient can be discharged from surgical standpoint when medically cleared -Urinary retention management per urology -Continue low fiber diet -Encourage patient to ambulate -GI prophylaxis Pepcid and DVT prophylaxis subcu heparin Physician Ct Technician note has been reviewed by physician. Signing provider agrees with the documented findings, assessment, and plan of care. Objective - Vital Signs Vital signs: Vital Signs Temp 97.5 F L 04/18/23 07:30 Pulse 74 04/18/23 08:00 Resp 18 04/18/23 08:00 BP 142/95 04/18/23 07:30 Pulse Ox 97 04/18/23 07:30 FiO2 Intake & Output 04/17/23 04/18/23 04/18/23 18:59 06:59 18:59 Intake Total 236 118 Output Total 2428 2120 880 Balance -2591 -0712 -762 Weight 79.379 kg Intake: Oral 236 118 Output: Urine 1550 2120 875 Straight 720 875 Post Void Residual 878 Stool 5 Other: Voiding Method Indwelling Catheter Toilet Toilet - Labs CBC & Chem 7: 04/18/23 07:02 04/18/23 07:02 Labs: Abnormal Lab Results - Last 24 Hours (Table) 04/18/23 04/18/23 Range/Units 07:02 07:02 RBC 3.95 L (4.30-5.90) m/uL Hgb 11.0 L (13.0-17.5) gm/dL Hct 33.5 L (39.0-53.0) % RDW 16.1 H (11.5-15.5) % Sodium 136 L (137-145) mmol/L BUN 8 L (9-20) mg/dL Creatinine 0.56 L (0.66-1.25) mg/dL
--- NOTE | 2023-04-18 16:03 | P.PN ---
Subjective Progress Note Date: 04/18/23 Principal diagnosis: Bowel obstruction, met rectal carcinoma Pt is doing ok today, managing ostomy well, he has a villalobos now because of inability to void. Ambulatory, tolerating oral intake. Objective - Vital Signs Vital signs: Vital Signs Temp 98.4 F 04/18/23 12:50 Pulse 82 04/18/23 12:50 Resp 18 04/18/23 12:50 BP 168/102 04/18/23 12:50 Pulse Ox 97 04/18/23 12:50 FiO2 Intake & Output 04/17/23 04/18/23 04/18/23 18:59 06:59 18:59 Intake Total 236 118 Output Total 2428 2120 1280 Balance -9871 -8874 -5168 Weight 79.379 kg Intake: Oral 236 118 Output: Urine 1550 2120 1275 Straight 720 875 Post Void Residual 878 Stool 5 Other: Voiding Method Indwelling Catheter Toilet Toilet - Constitutional General appearance: Present: average body habitus, cooperative, no acute distress - EENT Eyes: Present: anicteric sclerae, EOMI ENT: Present: hearing grossly normal - Respiratory Details: resp even and unlabored - Cardiovascular Details: skin warm and dry to touch - Integumentary Integumentary: Present: normal - Neurologic Neurologic: Present: CNII-XII intact - Musculoskeletal Musculoskeletal: Present: strength equal bilaterally - Psychiatric Psychiatric: Present: A&O x's 3, appropriate affect, intact judgment & insight - Labs CBC & Chem 7: 04/18/23 07:02 04/18/23 07:02 Labs: Abnormal Lab Results - Last 24 Hours (Table) 04/18/23 04/18/23 Range/Units 07:02 07:02 RBC 3.95 L (4.30-5.90) m/uL Hgb 11.0 L (13.0-17.5) gm/dL Hct 33.5 L (39.0-53.0) % RDW 16.1 H (11.5-15.5) % Sodium 136 L (137-145) mmol/L BUN 8 L (9-20) mg/dL Creatinine 0.56 L (0.66-1.25) mg/dL Assessment and Plan (1) Colonic obstruction Status: Acute Priority: High Code(s): K56.609 - UNSP INTESTNL OBST, UNSP TO PARTIAL VERSUS COMPLETE OBST SNOMED Code(s): 51941779 (2) 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 Managing care independently. Ostomy has output -Defer postop care to Surgeon Metastatic rectal carcinoma -Recent disease progression -Assess pt is 4 weeks to see if healed enough to begin palliative treatment, nay t in DC plan -Pt understands the plan of care Inability to void -seen by Urology -temporary villalobos, f/u with Urology planned
== END 2023-04-18 14:24 | disposition home health service (06) | DRG 330 ==
LOC: EC 05:47 → 5NMEDONC 08:39
PROVIDERS: ADMIT Internal Medicine; ATTEND Internal Medicine
PROC: 0D1N0Z4 Bypass Sigmoid Colon to Cutaneous, Open Approach (ICD-10-PCS; principal; 2023-04-12 07:30)
DX: C20 Malignant neoplasm of rectum (principal); C77.2 Secondary and unspecified malignant neoplasm of intra-abdominal lymph nodes; C78.7 Secondary malignant neoplasm of liver and intrahepatic bile duct; C79.51 Secondary malignant neoplasm of bone; K56.609 Unspecified intestinal obstruction, unspecified as to partial versus complete obstruction; C78.5 Secondary malignant neoplasm of large intestine and rectum; C78.6 Secondary malignant neoplasm of retroperitoneum and peritoneum; C78.02 Secondary malignant neoplasm of left lung; K62.4 Stenosis of anus and rectum; I10 Essential (primary) hypertension; R79.89 Other specified abnormal findings of blood chemistry; R33.8 Other retention of urine; Z79.899 Other long term (current) drug therapy; Z92.21 Personal history of antineoplastic chemotherapy; Z92.3 Personal history of irradiation; Z95.828 Presence of other vascular implants and grafts
CPT/HCPCS: 36415; 74177; 80048; 80053; 80076; 81003; 83605; 83690; 83735; 85025; 85027; 85610; 86850; 86900; 86901; 96361; 96365; 96366; 96372; 96374; 96375; 96376; 99285